=== PATIENT | male | born 1930 | race Caucasian/White ===

== ENCOUNTER 2016-09-27 20:22 | Inpatient (IN) ==
--- NOTE | 2016-09-27 20:56 | Emergency Department Note ---
Disposition Clinical Impression: Pleural effusion, Elevated troponin Anemia Qualifiers: Anemia type: unspecified type Qualified Code(s): D64.9 - Anemia, unspecified Disposition: Admitted As Inpatient Condition: Fair Referrals: Jae Núñez DO [Primary Care Provider] - Forms: ED Satisfaction Letter Time of Disposition: 23:40 Fall HPI - General Chief Complaint: ED Extremity Injury, Upper Stated Complaint: left shoulder injury Time Seen by Provider: 09/27/16 20:27 Source: EMS Nursing Notes Reviewed: Yes Vital Signs Reviewed: Yes - History of Present Illness Pt Subjective Complaint: fall Onset (ago): hour(s) Fall From: standing Fall Witnessed: no Place Fall Occurred: home Loss of Consciousness: unsure Prolonged Down Time?: unclear Context: tripped/slipped, other Location of injury - extremities: Left: shoulder Associated symptoms (after fall): Reports: denies All systems ED: reviewed and negative except as stated. Constitutional: Denies: fever, chills Eyes: Denies: eye pain, vision change ENT ED: Denies: throat pain Cardiovascular: Denies: chest pain Respiratory: Denies: cough, dyspnea, wheezes Gastrointestinal: Denies: abdominal pain, nausea, vomiting Genitourinary: Denies: dysuria Musculoskeletal: Reports: as per HPI. Denies: back pain, neck pain Integumentary: Denies: rash Neurological: Denies: headache, weakness, numbness, paresthesias Psychiatric: Denies: anxiety Endocrine: Denies: fatigue Hematological/Lymphatic: Denies: easy bleeding Allergic/Immunologic: Denies: facial swelling Fall PMH - Past Medical History Medical history: Reports: no medical history Psychiatric history: Reports: no psych history - Social History Smoking Status: Former smoker Alcohol use: Reports: none Drug use: Reports: none Physical Exam - General Limitations: no limitations General appearance: alert, in no apparent distress - Head Head exam: normocephalic - Eye Eye exam: Present: EOMI. Absent: conjunctival injection - ENT ENT exam: mucous membranes moist - Neck Neck exam: Present: full ROM - Chest Chest inspection: Present: symmetric chest wall rise, other (scars) - Respiratory Respiratory exam: Absent: respiratory distress, wheezes, stridor - Cardiovascular Cardiovascular exam: Present: regular rate - Abdominal Exam Abdominal exam: Present: soft, Non-Tender - Extremities Exam Extremities exam: Present: normal inspection, full ROM, normal capillary refill - Expanded Lower Extremity Exam Hip/Pelvis exam: Absent: tenderness Upper leg exam: Absent: tenderness Knee exam: Absent: tenderness Lower leg exam: Present: swelling. Absent: tenderness Ankle exam: Present: swelling. Absent: tenderness Foot/toe exam: Absent: tenderness Neurovascular/Tendon exam: Present: normal capillary refill. Absent: pulse deficit Gait: not tested/not observed - Back Exam Back exam: Present: full ROM. Absent: tenderness - Neurological Exam Neurological exam: Present: alert, oriented X3 - Psychiatric Psychiatric exam: Present: normal affect, normal mood - Skin Skin exam: Present: warm, dry, intact, normal color. Absent: rash, cyanosis, diaphoresis Course Course Narrative: 85yo M arrives via squad with reported fall. Fall unwitness. Pt denies LOC. Squad reports neighbor reported pt mental status at baseline. PMHx and med list unknown. Pt slow to answer questions. c/o Left shoulder. Will ordering josie david, ct head/neck. - Reevaluation(s) Reevaluation #1: Patient has a hemoglobin of 8.5, elevated troponin, and chest x-ray shows left sided pleural effusion with basilar atelectasis versus consolidation. EKG shows atrial flutter which is also indicated on his EKG from 2015. Patient currently denies chest pain, he does mention some mild shortness of breath. He is not diaphoretic, denies abdominal pain, nausea, vomiting, recent illness, bowel or bladder changes. I discussed the workup with Dr. Lindo, who agreed with decision to admit. Time: 22:25 Reevaluation #2: I did telephone and discussed patient with his son. Mentioned patient has a history of stroke with chronic right-sided weakness. He has a home health care visit are approximately every other week. He mentions his older son is power of real estate attorney but is currently unavailable out of town for the holiday. I was able to contact the patient's [id number], who provided the patient's home medication list. (Citalopram, diclofenac, lisinopril, metoprolol, simvastatin, tamsulosin,, Xarelto, lorazepam, tramadol) Patient discussed with and accepted by hospitalist Time: 23:34 Reevaluation #3: Pt declines SIN for fecal occult blood test. Time: 00:04 Vital Signs Temperature 98.1 F 09/27/16 20:23 Pulse Rate 56 09/27/16 20:23 Respiratory Rate 18 09/27/16 20:23 Blood Pressure 152/77 09/27/16 20:23 O2 Sat by Pulse Oximetry 95 09/27/16 20:23 Temperature 98.1 F 09/27/16 20:23 Pulse Rate 56 09/27/16 20:23 Respiratory Rate 18 09/27/16 20:23 Blood Pressure 152/77 09/27/16 20:23 O2 Sat by Pulse Oximetry 95 09/27/16 20:23 Oxygen Delivery Oxygen Delivery Room [facility] - [facility] Narrative Medical decision making narrative: Patient presented with mechanical fall, but also presented with possible altered mental status. CT scan head and neck are negative, left shoulder x-ray AP pelvis negative. Chest x-ray did show left-sided pleural effusion, possible consolidation. Patient also has decreased hemoglobin, he has refused SIN for fecal occult blood test. He has elevated troponin, but denies CP, SOB, and he also has elevated creatine. vitals are stable. Exam showed some mild pitting edema bilaterally, and some tenderness with palpation over left shoulder. Head and face atraumatic. I have discussed patient with Dr. Lindo who also had a face time with patient and agreed for workup and decision to admit the patient was accepted by hospitalist. All Lab Results (24 Hours) 09/27/16 09/27/16 09/27/16 Range/Units 21:44 21:44 21:44 WBC 8.6 (4.3-11.1) K/mcL RBC 2.96 L (4.19-5.50) M/mcL Hgb 8.5 L (12.9-16.9) g/dL Hct 28.4 L (37.5-50.1) % MCV 95.9 (83.0-100.0) fL MCH 28.7 (28.0-33.3) pg MCHC 29.9 L (31.6-35.5) g/dL RDW 14.3 (11.5-14.5) % Plt Count 330 (140-400) K/mcL MPV 9.0 L (9.4-12.4) fL Immature Gran % 0.3 (0-4) % Seg Neutrophils % 69.9 % Lymphocytes % 18.1 % Monocytes % 9.3 % Eosinophils % 1.9 % Basophils % 0.5 % Neutrophils # 6.0 (1.6-8.9) K/mcL Lymphocytes # 1.6 (0.6-4.6) K/mcL Monocytes # 0.8 (0.0-1.3) K/mcL Eosinophils # 0.2 (0.0-0.6) K/mcL Basophils # 0.0 (0.0-0.2) K/mcL Immature Plt Fraction 1.2 (1.1-6.1) % PT 21.0 H (9.4-12.1) Seconds INR 1.9 APTT 32.1 (26.0-36.0) Seconds Sodium 141 (136-145) mEq/L Potassium 4.7 H (3.5-4.5) mEq/L Chloride 110 H (98-109) mEq/L Carbon Dioxide 24 (19-29) mEq/L BUN 23 (8-26) mg/dL Creatinine 1.57 H (0.72-1.25) mg/dL Est GFR ( Amer) 51 L (> 60) Est GFR (Non-Af Amer) 42 L (> 60) BUN/Creatinine Ratio 15 (6-26) Glucose 94 (70-99) mg/dL Calculated Osmolality 295 (280-300) Calcium 8.6 (8.6-10.8) mg/dL Creatine Kinase 90 (30-200) Units/L Troponin I (0-0.03) ng/mL Ethyl Alcohol < 10 (0-10) mg/dL 09/27/16 Range/Units 21:44 WBC (4.3-11.1) K/mcL RBC (4.19-5.50) M/mcL Hgb (12.9-16.9) g/dL Hct (37.5-50.1) % MCV (83.0-100.0) fL MCH (28.0-33.3) pg MCHC (31.6-35.5) g/dL RDW (11.5-14.5) % Plt Count (140-400) K/mcL MPV (9.4-12.4) fL Immature Gran % (0-4) % Seg Neutrophils % % Lymphocytes % % Monocytes % % Eosinophils % % Basophils % % Neutrophils # (1.6-8.9) K/mcL Lymphocytes # (0.6-4.6) K/mcL Monocytes # (0.0-1.3) K/mcL Eosinophils # (0.0-0.6) K/mcL Basophils # (0.0-0.2) K/mcL Immature Plt Fraction (1.1-6.1) % PT (9.4-12.1) Seconds INR APTT (26.0-36.0) Seconds Sodium (136-145) mEq/L Potassium (3.5-4.5) mEq/L Chloride (98-109) mEq/L Carbon Dioxide (19-29) mEq/L BUN (8-26) mg/dL Creatinine (0.72-1.25) mg/dL Est GFR ( Amer) (> 60) Est GFR (Non-Af Amer) (> 60) BUN/Creatinine Ratio (6-26) Glucose (70-99) mg/dL Calculated Osmolality (280-300) Calcium (8.6-10.8) mg/dL Creatine Kinase (30-200) Units/L Troponin I 0.04 H* (0-0.03) ng/mL Ethyl Alcohol (0-10) mg/dL Shoulder X-Ray 09/27/16 20:46 IMPRESSION: No acute osseous abnormality. D/ / Sylvester Angel MD / Sylvester Angel MD Interpreting Provider: Sylvester Angel MD Chest X-Ray 09/27/16 20:51 IMPRESSION: Mild cardiomegaly and pulmonary vascular congestion. Small left pleural effusion, with basilar atelectasis and/or consolidation. D/ / 09/27/2016 21:45:19 Sylvester Angel MD / Natalie Mireles Interpreting Provider: Sylvester Angel MD Pelvis X-Ray 09/27/16 20:51 IMPRESSION: No acute osseous abnormality. 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 D/ / Sylvester Angel MD / Sylvester Angel MD Interpreting Provider: Sylvester Angel MD Cervical Spine CT 09/27/16 20:53 IMPRESSION: No acute abnormality of the cervical spine. Multilevel degenerative changes as above. D/ / 09/27/2016 21:38:01 Sylvester Angel MD / Natalie Mireles Interpreting Provider: Sylvester Angel MD Head CT 09/27/16 20:53 IMPRESSION: No acute intracranial abnormality. Patchy hypodensities in the periventricular and subcortical white matter, which are nonspecific, but may represent chronic small vessel ischemic change. D/ / 09/27/2016 21:39:25 Sylvester Angel MD / Natalie Mireles Interpreting Provider: Sylvester Angel MD - Lab Data Lab results reviewed: Yes I reviewed the patient's lab results. Result diagrams: 09/27/16 21:44 09/27/16 21:44 Lab Results 09/27/16 09/27/16 09/27/16 Range/Units 21:44 21:44 21:44 WBC 8.6 (4.3-11.1) K/mcL RBC 2.96 L (4.19-5.50) M/mcL Hgb 8.5 L (12.9-16.9) g/dL Hct 28.4 L (37.5-50.1) % MCV 95.9 (83.0-100.0) fL MCH 28.7 (28.0-33.3) pg MCHC 29.9 L (31.6-35.5) g/dL RDW 14.3 (11.5-14.5) % Plt Count 330 (140-400) K/mcL MPV 9.0 L (9.4-12.4) fL Immature Gran % 0.3 (0-4) % Seg Neutrophils % 69.9 % Lymphocytes % 18.1 % Monocytes % 9.3 % Eosinophils % 1.9 % Basophils % 0.5 % Neutrophils # 6.0 (1.6-8.9) K/mcL Lymphocytes # 1.6 (0.6-4.6) K/mcL Monocytes # 0.8 (0.0-1.3) K/mcL Eosinophils # 0.2 (0.0-0.6) K/mcL Basophils # 0.0 (0.0-0.2) K/mcL Immature Plt Fraction 1.2 (1.1-6.1) % PT 21.0 H (9.4-12.1) Seconds INR 1.9 APTT 32.1 (26.0-36.0) Seconds Sodium 141 (136-145) mEq/L Potassium 4.7 H (3.5-4.5) mEq/L Chloride 110 H (98-109) mEq/L Carbon Dioxide 24 (19-29) mEq/L BUN 23 (8-26) mg/dL Creatinine 1.57 H (0.72-1.25) mg/dL Est GFR ( Amer) 51 L (> 60) Est GFR (Non-Af Amer) 42 L (> 60) BUN/Creatinine Ratio 15 (6-26) Glucose 94 (70-99) mg/dL Calculated Osmolality 295 (280-300) Calcium 8.6 (8.6-10.8) mg/dL Creatine Kinase 90 (30-200) Units/L Troponin I (0-0.03) ng/mL Ethyl Alcohol < 10 (0-10) mg/dL 09/27/16 Range/Units 21:44 WBC (4.3-11.1) K/mcL RBC (4.19-5.50) M/mcL Hgb (12.9-16.9) g/dL Hct (37.5-50.1) % MCV (83.0-100.0) fL MCH (28.0-33.3) pg MCHC (31.6-35.5) g/dL RDW (11.5-14.5) % Plt Count (140-400) K/mcL MPV (9.4-12.4) fL Immature Gran % (0-4) % Seg Neutrophils % % Lymphocytes % % Monocytes % % Eosinophils % % Basophils % % Neutrophils # (1.6-8.9) K/mcL Lymphocytes # (0.6-4.6) K/mcL Monocytes # (0.0-1.3) K/mcL Eosinophils # (0.0-0.6) K/mcL Basophils # (0.0-0.2) K/mcL Immature Plt Fraction (1.1-6.1) % PT (9.4-12.1) Seconds INR APTT (26.0-36.0) Seconds Sodium (136-145) mEq/L Potassium (3.5-4.5) mEq/L Chloride (98-109) mEq/L Carbon Dioxide (19-29) mEq/L BUN (8-26) mg/dL Creatinine (0.72-1.25) mg/dL Est GFR ( Amer) (> 60) Est GFR (Non-Af Amer) (> 60) BUN/Creatinine Ratio (6-26) Glucose (70-99) mg/dL Calculated Osmolality (280-300) Calcium (8.6-10.8) mg/dL Creatine Kinase (30-200) Units/L Troponin I 0.04 H* (0-0.03) ng/mL Ethyl Alcohol (0-10) mg/dL - Radiology Data Radiology results reviewed: Yes I reviewed the patient's radiology results. - EKG Data EKG attestation: Yes I reviewed and interpreted this EKG. Attestation Statement - Attestation Attestation: Patient was seen in coordination with physician quality assistant. I also personally evaluated and had [id number] time with this patient. 85-year-old male who presents to the emergency Department chief complaint of fall. Patient was apparently chasing some [place]. When he tripped and fell. Patient is a poor historian with a history of dementia. There is some question as to whether or not he also has acute mental status change, but reports from neighbors that he is at his baseline. Patient has several areas of injury which are documented in the PA note. On examination vital signs are stable. ENT is unremarkable. Heart and lungs are normal. Abdomen is soft and nontender extremities are unremarkable. Neurologically patient is a poor historian but he is easily arousable and alert. He follows all commands. He does have some level of confusion. ED course. We will get a CT scan and workup for mental status change essentially. We will also x-ray all the areas of potential injury. If patient does not have any acute findings likely that he will be discharged to home. If anything positive shows up will treat accordingly. I agree with the physician quality assistant assessment and plan.
[2016-09-27 21:52] LABS: Basophils % 0.5 %; Eosinophils # 0.2 K/mcL (0.0-0.6); Eosinophils % 1.9 %; Hematocrit 28.4 % (37.5-50.1); Hemoglobin 8.5 g/dL (12.9-16.9); Immature Granulocytes % 0.3 % (0-4); Immature Platelets 1.2 % (1.1-6.1); Lymphocytes # 1.6 K/mcL (0.6-4.6); Lymphocytes % 18.1 %; Mean Corpuscular HGB Conc 29.9 g/dL (31.6-35.5); Mean Corpuscular Hemoglobin 28.7 pg (28.0-33.3); Mean Corpuscular Volume 95.9 fL (83.0-100.0); Monocytes # 0.8 K/mcL (0.0-1.3); Monocytes % 9.3 %; Platelet Count 330 K/mcL (140-400); Red Blood Count 2.96 M/mcL (4.19-5.50); Red Cell Distribution Width 14.3 % (11.5-14.5); Segmented Neutrophils % 69.9 %
[2016-09-27 21:58] LABS: INR 1.9
[2016-09-27 22:00] LABS: Activated Partial Thrombo Time 32.1 Seconds (26.0-36.0)
[2016-09-27 22:06] LABS: BUN/Creatinine Ratio 15 (6-26); Blood Urea Nitrogen 23 mg/dL (8-26); Calcium 8.6 mg/dL (8.6-10.8); Carbon Dioxide 24 mEq/L (19-29); Chloride 110 mEq/L (98-109); Creatine Kinase 90 Units/L (30-200); Glucose 94 mg/dL (70-99); Osmolality,Calculated 295 (280-300); Potassium 4.7 mEq/L (3.5-4.5); Sodium 141 mEq/L (136-145); eGFR For African Americans 51 (> 60); eGFR For Non-African Americans 42 (> 60)
[2016-09-27 22:07] LABS: Ethanol < 10 mg/dL (0-10)
[2016-09-27] MEDS ORDERED: Naloxone 0.4 MG/ML INJ IVP PRN (23:57)
[2016-09-27] MEDS ORDERED: Ondansetron 4 MG/2 ML VIAL IVP PRN (23:57)
--- NOTE | 2016-09-28 01:18 | Internal Med History&Physical ---
Date of Encounter: 09/28/16 Time of Encounter: 01:00 Assessment and Plan (1) CHF (congestive heart failure) Current visit: Yes Status: Acute Patient does not seem to have any symptoms of CHF. On exam, however, patient has bilateral pitting pedal edema and bilateral basal crepitations. Chest x-ray reveals pulmonary vest for condition cardia megaly with left-sided pleural effusion. His troponin elevation may also be related to his CHF or the patient could be having an acute coronary syndrome that is causing the CHF. Will obtain B-type natriuretic peptide level. Patient will be admitted to inpatient status. Expect the patient to be in the hospital at least 2 midnights. Expected discharge disposition is to home. High risk due to possible acute coronary event and is at risk of lethal arrhythmias. Intravenous Lasix 40 mg twice a day. Strict input and output monitoring, daily weights. We will obtain an echocardiogram in the morning. Cycle cardiac enzymes. His ST changes on the chest wall leads could be related to the right bundle branch block. Will repeat an EKG in the morning. Hold off on full dose antibiotic medication for now. Continue aspirin, statin and beta jaswinder. Patient may need cardiology consult depending on results of his testing and his progress. However, given his age, he is likely not a good candidate for coronary intervention. Qualifiers: Congestive heart failure type: unspecified congestive heart failure type Congestive heart failure chronicity: acute Qualified Code(s): I50.9 - Heart failure, unspecified (2) Fall Current visit: Yes Status: Acute Patient sustained a mechanical fall today. He complains of pain in his left shoulder. X-rays do not reveal any bony abnormalities. We will order Lidoderm patch. Physical therapy and occupational therapy will be consulted to evaluate the patient. Qualifiers: Encounter type: initial encounter Qualified Code(s): W19.XXXA - Unspecified fall, initial encounter (3) CVA (cerebral vascular accident) Current visit: Yes Status: Chronic History of stroke in the past with residual deficits. Continue aspirin, statin Qualifiers: CVA mechanism: unspecified Qualified Code(s): I63.9 - Cerebral infarction, unspecified (4) CAD (coronary artery disease) Current visit: Yes Status: Chronic As mentioned above, likely non-STEMI. Continue aspirin, statin. Follow-up echocardiogram and cardiac enzymes. Risks versus benefits of beta blockers need to be considered in this 85-year- old patient. Although beta blockers can reduce mortality and morbidity from cardiac disease, there is a risk of functional decline and worsening quality of life. We will hold off on beta blockers for now. Qualifiers: Coronary Disease-Associated Artery/Lesion type: [place] artery [place] vs. transplanted heart: [place] heart Associated angina: without angina Qualified Code(s): I25.10 - Atherosclerotic heart disease of [place] coronary artery without angina pectoris (5) Anemia Current visit: Yes Status: Chronic Patient's hemoglobin was 13 about 2 years ago. Patient refused rectal exam in the emergency department. Will obtain fecal occult blood test. Iron panel, B12 and folic acid levels. If the patient turns out to have acute coronary syndrome, will transfuse to keep his hemoglobin greater than 9. Qualifiers: Anemia type: unspecified type Qualified Code(s): D64.9 - Anemia, unspecified (6) CKD (chronic kidney disease), stage III Current visit: Yes Status: Chronic Renal function is mildly worsened compared to baseline. Patient is currently volume overloaded. Patient will be placed on Lasix and his response monitored. Avoid hypotension and nephrotoxic agents. Internal Medicine - H&P: HPI Chief complaint: Fall Admitted From: Emergency Dept Plans for Post Hospital Care: Home History of present illness: Mr. Cruz is a 85 year old male who was brought to the emergency department by EMS. EMS was called by the neighbor after the patient sustained a fall. The patient was apparently chasing geese off his pond when he sustained a fall. The patient's neighbor called EMS. Upon arrival of EMS, the patient was sitting in a chair and complaining of pain in his left shoulder. According to the neighbor, the patient's mental status was at its baseline. In the emergency department, the patient had workup of his fall and was not found to have any acute fractures or abnormalities. The patient is a poor historian due to his baseline dementia. However, he is able to answer questions and states that he has pain in his left shoulder that is intermittent and is 3/10. Pain worsens with movement and relieved with rest. No radiation of the pain. He denies any chest pain, shortness of breath , wheezing, palpitations or feeling lightheaded. Past Med Surg Social Fam HX - Past Medical History Source: old records reviewed Medical history: CVA, dementia, hyperlipidemia, hypertension Psychiatric history: no psych history - Past Surgical History Surgical History: non-contributory, coronary bypass (CABG) - Social History Smoking Status: Former smoker Smokeless Tobacco Status: No Alcohol use: none Drug use: none Current living situation: Home - Independent - Additional Family History Additional family history: Reviewed; not pertinent Internal Medicine - H&P: Meds Allergies No Known Allergies Allergy (Verified 09/28/16 00:07) All Systems PM: A 10-system review of systems was performed and is negative for pertinent findings except as documented above in the HPI. Review of systems: 10 systems have been reviewed and are negative except as mentioned in the history of present illness - Constitutional Vitals: Temp Pulse Resp BP Pulse Ox 98.1 F 53 16 131/80 94 09/27/16 20:23 09/27/16 23:14 09/28/16 00:38 09/28/16 00:38 09/27/16 23:14 Exam: Gen.: Sitting in bed. No acute distress. Eyes: Pupils equal, round and reactive to light. Extraocular muscles intact. ENT: Moist mucous membranes. No oropharyngeal erythema or discharge. Chest: Bilateral basal crepitations present. CVS: First and second heart sounds present. No murmurs, rubs or gallops. Midline scar on the chest. Bilateral lower extremity 2+ pitting pedal edema up to the knees. Abdomen: Soft, nontender, nondistended. Bowel sounds present. No hepatosplenomegaly. Skin: No decubitus ulcers appreciated. OIL DEVELOPER: Weakness on the right upper and lower extremities. Psychiatric: Alert, awake and oriented to time, place and person. Lymphatic system: No lymphadenopathy appreciated Internal Med - H&P Results - Labs CBC & Chem 7: 09/27/16 21:44 09/27/16 21:44 - EKG Data -: EKG Interpreted by Myself (Atrial flutter with variable conduction) EKG shows normal: QRS complexes (Right bundle branch block with RSR pattern in chest wall leads), ST-T waves (ST depressions V4 and V5) Rate: normal - EKG Data Prior EKG available for review: yes When compared to previous EKG: there are significant changes Interpretation IM: suggestive of ischemia - Diagnostic Studies Chest x-ray Status: image reviewed by me (Pulmonary vascular congestion and cardiomegaly; left small pleural effusion; prior cardiac surgery)
[2016-09-28] MEDS: Furosemide 40 MG/4 ML VIAL IVP SCH ×3 (01:58→17:40)
[2016-09-28 02:03] LABS: Bilirubin,Urine Negative (Negative); Blood,Urine Negative (Negative); Clarity,Urine Clear (Clear); Color,Urine Yellow (Yellow); Glucose,Urine (UA) Normal (Normal); Ketones,Urine 15 mg/dL (Negative); Leukocyte Esterase,Urine Negative (Negative); Nitrite,Urine Negative (Negative); Protein,Urine Trace mg/dL (Neg-Trace); Specific Gravity,Urine 1.022 (1.010-1.025); Urobilinogen,Urine Normal (Normal)
[2016-09-28 02:05] LABS: Bacteria,Urine None Seen per hpf (None-Few); Hyaline Casts,Urine None Seen per lpf (None-Few); RBC,Urine 0-3 per hpf (0-3); Squamous Epithelial Cell,Urine Many per lpf (None-Few); WBC,Urine 0-3 per hpf (0-3)
[2016-09-28 02:49] LABS: Hematocrit 30.6 % (37.5-50.1); Hemoglobin 9.2 g/dL (12.9-16.9); Mean Corpuscular HGB Conc 30.1 g/dL (31.6-35.5); Mean Corpuscular Hemoglobin 28.6 pg (28.0-33.3); Platelet Count 318 K/mcL (140-400); Red Blood Count 3.22 M/mcL (4.19-5.50); Red Cell Distribution Width 14.2 % (11.5-14.5)
[2016-09-28 03:08] LABS: Albumin 3.3 g/dL (3.5-5.0); Albumin/Globulin Ratio 0.9 (1.1-2.2); Bilirubin,Total 0.5 mg/dL (0.2-1.2); Calcium 8.8 mg/dL (8.6-10.8); Globulin 3.5 g/dL (2.4-3.5); Potassium 4.7 mEq/L (3.5-4.5); Total Protein 6.8 g/dL (6.0-8.3)
[2016-09-28 03:43] LABS: Folate 11.2 ng/mL (7.0-31.4); Vitamin B12 < 109 pg/mL (213-816)
[2016-09-28] MEDS: *HR* Heparin 5,000 UNIT/ML VIAL SQ SCH ×3 (06:40→20:27)
[2016-09-28] MEDS: Aspirin Enteric Coated 81 MG Tablet PO SCH (09:16)
--- NOTE | 2016-09-28 15:56 | Internal Med Progress Note ---
Date of Encounter: 09/28/16 Time of Encounter: 09:55 - Assessment and plan (1) CHF (congestive heart failure) Current Visit: Yes Status: Acute Assessment and plan: BNP is 259. Chest x-ray showed mild cardiomegaly pulmonary vascular congestion with a small left pleural effusion. Patient reports some peripheral edema that he states is unchanged for him. He does have mild pitting edema to bilateral ankles and feet. Echocardiogram was done today showed LVEF of 60% with normal systolic function. There is mild concentric hypertrophy of left ventricle and indeterminate diastolic dysfunction. Mild to moderate valvular dysfunction and probable mild to moderate pulmonary hypertension. Continue I's and O's Cardiac monitoring IV Lasix 40 mg twice a day Cardiology will see in the morning. Oxygen as needed to maintain saturation greater than 92%. Monitor labs Patient is close to the nurses station and is at increased risk for fall. Qualifiers: Congestive heart failure type: unspecified congestive heart failure type Congestive heart failure chronicity: acute Qualified Code(s): I50.9 - Heart failure, unspecified (2) Fall Current Visit: Yes Status: Acute Assessment and plan: Patient had mechanical fall at home last night. He was chasing geese away from his pond. He says is not sure if he tripped or fell in a hole. He complains of pain to his left shoulder, x-ray was negative. He denies hitting his head. CT in the emergency department showed no acute abnormality with patchy hypodensities in the white matter which are nonspecific but could represent chronic small vessel ischemic change. Fall precautions Patient is close to nurses station PT and OT have been consulted Qualifiers: Encounter type: initial encounter Qualified Code(s): W19.XXXA - Unspecified fall, initial encounter (3) Anemia Current Visit: Yes Status: Chronic Assessment and plan: Patient's hemoglobin is slightly elevated at 9.2 from arrival. Hemoglobin was 13 about 2 years ago. Iron and percent saturation are low as well as MCV. Will start patient on iron supplementation. B12 is low, as well. Folate is within normal limits. I have ordered a type and screen for potential transfusion if patient's hemoglobin drops below 9 and has ACS. Qualifiers: Anemia type: unspecified type Qualified Code(s): D64.9 - Anemia, unspecified (4) CAD (coronary artery disease) Current Visit: Yes Status: Chronic Assessment and plan: Patient denies chest pain currently. With elevated troponin, most likely non- STEMI. We will continue his aspirin and statin. Echocardiogram done today and results above. Troponin was flat and adynamic, also could be related to demand from congestive heart failure. Cardiology has been consulted. I have ordered a repeat troponin, routine labs for the morning, as well as an EKG in the morning. Continue telemetry Continue aspirin and statin Cardiology consult in the morning Qualifiers: Coronary Disease-Associated Artery/Lesion type: [place] artery [place] vs. transplanted heart: [place] heart Associated angina: without angina Qualified Code(s): I25.10 - Atherosclerotic heart disease of [place] coronary artery without angina pectoris (5) CKD (chronic kidney disease), stage III Current Visit: Yes Status: Chronic Assessment and plan: BUN is slightly less elevated than on admission. We will continue to monitor labs and avoid nephrotoxins. Patient is receiving Lasix for fluid overload, we will need to monitor renal function closely. Labs in the a.m. (6) CVA (cerebral vascular accident) Current Visit: Yes Status: Chronic Assessment and plan: Patient with stroke in the past. Patient does have some dysarthria and some right-sided weakness. Patient does live alone and cares for himself. I have consult in for PT and OT for evaluation for continued skilled needs. Qualifiers: CVA mechanism: unspecified Qualified Code(s): I63.9 - Cerebral infarction, unspecified - Time Spent With Patient less than 15 minutes - Subjective Interval history: Patient was seen and examined at 9:55 AM. Son, who is not the power of traffic law attorney , was at bedside. Patient states that he has a pond in his backyard that has multiple geese. He says that he was going down to the pond to scare them away when he fell. He said he is not sure if he tripped over something or fell in a hole. He denies chest pain, shortness of breath, dizziness at time of incident or prior to. His son reports that he has had another episode where he fell and had pain and an injured left shoulder from attempting to shoot the geese. Son and I discussed physical therapy and occupational therapy consults and possible rehabilitation placement. He states that sometimes he feels as if his dad is not safe to be alone. He also suggests speaking to his brother, too recommendations. He is hard of hearing, however he is very alert and oriented and interactive. Very pleasant elderly man. He does receive home health care 2 hours daily Thursday through Thursday. - Constitutional Vitals: Temp Pulse Resp BP Pulse Ox 98.0 F 68 18 142/82 98 09/28/16 15:27 09/28/16 15:27 09/28/16 15:27 09/28/16 15:27 09/28/16 15:27 General appearance: Present: cooperative, A&O X 3, pleasant, no acute distress, answers questions appropriately - Head Head exam: Present: normal inspection - Eye Eye exam: Present: normal appearance, conjuntiva pink - ENT ENT exam: Present: mucous membranes moist, normal exam - Neck Neck exam general surgery: Present: normal inspection. Absent: lymphadenopathy , tenderness - Respiratory Respiratory exam: Present: decreased breath sounds, rales. Absent: chest wall tenderness, respiratory distress, rhonchi, stridor, wheezes - GI/Abdominal GI/Abdominal exam: Present: normal bowel sounds, soft. Absent: distended, hepatomegaly, tenderness - Extremities Exam Extremities exam: Present: normal inspection, warm, radial pulses palpable and symetrical. Absent: pedal edema, tenderness - Neurological Exam Neurological exam: Present: alert, oriented X3. Absent: facial droop, speech deficit Internal Medicine: Result - Labs CBC & Chem 7: 09/28/16 02:35 09/28/16 02:35 Labs: Short CBC 09/28/16 Range/Units 02:35 WBC 7.9 (4.3-11.1) K/mcL Hgb 9.2 L (12.9-16.9) g/dL Hct 30.6 L (37.5-50.1) % Plt Count 318 (140-400) K/mcL BMP 09/28/16 02:35 Sodium 140 Potassium 4.7 H Chloride 108 Carbon Dioxide 25 BUN 21 Creatinine 1.48 H Glucose 99 Calcium 8.8 Cardiac Enzymes 09/28/16 09/28/16 Range/Units 02:35 08:18 Troponin I 0.03 0.04 H* (0-0.03) ng/mL Liver Function 09/28/16 Range/Units 02:35 Total Bilirubin 0.5 (0.2-1.2) mg/dL AST 17 (5-34) Units/L ALT 15 (0-55) Units/L Alkaline Phosphatase 66 (38-126) Units/L Albumin 3.3 L (3.5-5.0) g/dL Urine 09/28/16 Range/Units 01:50 Urine Color Yellow (Yellow) Urine Clarity Clear (Clear) Urine pH 7.0 (5.0-8.0) pH Units Ur Specific [place] 1.022 (1.010-1.025) Urine Protein Trace (Neg-Trace) mg/dL Urine Glucose (UA) Normal (Normal) mg/dL - ABG Interpretation ABG results: PT/INR, D-dimer PT 21.0 Seconds (9.4-12.1) H 09/27/16 21:44 Consult Discharge Plan - Plan Referrals: ColopyJae DO [Primary Care Provider] -
[2016-09-28] MEDS: Acetaminophen 325 MG TABLET PO PRN (20:32)
[2016-09-29 04:26] LABS: Basophils % 0.5 %; Eosinophils # 0.2 K/mcL (0.0-0.6); Eosinophils % 1.7 %; Hematocrit 32.1 % (37.5-50.1); Hemoglobin 9.8 g/dL (12.9-16.9); Immature Granulocytes % 0.3 % (0-4); Lymphocytes # 1.6 K/mcL (0.6-4.6); Lymphocytes % 18.3 %; Mean Corpuscular HGB Conc 30.5 g/dL (31.6-35.5); Mean Corpuscular Hemoglobin 28.7 pg (28.0-33.3); Mean Corpuscular Volume 93.9 fL (83.0-100.0); Mean Platelet Volume 9.4 fL (9.4-12.4); Monocytes # 1.1 K/mcL (0.0-1.3); Monocytes % 12.3 %; Neutrophils # 5.8 K/mcL (1.6-8.9); Platelet Count 368 K/mcL (140-400); Red Blood Count 3.42 M/mcL (4.19-5.50); Red Cell Distribution Width 14.2 % (11.5-14.5); Segmented Neutrophils % 66.9 %
[2016-09-29 04:27] LABS: Calcium 9.2 mg/dL (8.6-10.8)
[2016-09-29] MEDS: *HR* Heparin 5,000 UNIT/ML VIAL SQ SCH (05:52)
[2016-09-29] MEDS: Acetaminophen 325 MG TABLET PO PRN (05:52)
[2016-09-29] MEDS: Furosemide 40 MG/4 ML VIAL IVP SCH (08:35)
[2016-09-29] MEDS: Aspirin Enteric Coated 81 MG Tablet PO SCH (08:35)
[2016-09-29 08:42] LABS: Bilirubin,Urine Small (Negative); Blood,Urine Large (Negative); Clarity,Urine Cloudy (Clear); Color,Urine Red (Yellow); Glucose,Urine (UA) Normal (Normal); Ketones,Urine 15 mg/dL (Negative); Leukocyte Esterase,Urine Moderate (Negative); Nitrite,Urine Negative (Negative); Protein,Urine >=300 mg/dL (Neg-Trace); Specific Gravity,Urine 1.026 (1.010-1.025); Urobilinogen,Urine Normal (Normal)
[2016-09-29 08:44] LABS: Bacteria,Urine None Seen per hpf (None-Few); Hyaline Casts,Urine None Seen per lpf (None-Few); RBC,Urine TNTC per hpf (0-3); Squamous Epithelial Cell,Urine Many per lpf (None-Few); WBC,Urine 15-30 per hpf (0-3)
[2016-09-29] MEDS ORDERED: Cyanocobalamin (B-12) 1,000 MCG TABLET PO SCH (09:00)
--- NOTE | 2016-09-29 12:13 | Cardiology Consult Note ---
<OseasRayna Lurdes - Last Filed: 09/29/16 13:32> Date of Encounter: 09/29/16 Time of Encounter: 09:00 Assessment and Plan (1) Fall Current Visit: Yes Status: Acute Per cardiology: -Patient with mechanical fall at home, while chasing geese out of his pond. -Denies any other recent falls. -Injury work up completed in ER. -Management per primary service. Qualifiers: Encounter type: initial encounter Qualified Code(s): W19.XXXA - Unspecified fall, initial encounter (2) Elevated troponin Current Visit: Yes Status: Acute Per cardiology: -Elevated troponin 0.04, 0.04, 0.03, 0.04. -Troponins flat and adynamic in the setting of CHF, fall, and STEPHAN. -Denies chest pain. -Denies increased shortness of breath or increased fatigue. -ECG with no ischemic changes. -ON asa. statin. Has not been on beta jaswinder due to bradycardia. -Echo 09/28/16 with LVEF 60%, mild concentric left ventricular hypertrophy, indeterminate left ventricular diastolic function, moderate aortic stenosis, mild mitral regurgitation, mild tricuspid regurgitation, mild pulmonic regurgitation, mild to moderate pulmonary hypertension, all wall segments with normal motion. -Do not suspect NSTEMI, suspect demand ischemia related to CHF, fall, and STEPHAN. NO cardiac rehab warranted at this time. -Will continue to monitor. (3) Diastolic congestive heart failure, NYHA class 1 Current Visit: Yes Status: Acute Per cardiology: -Echo 09/28/16 as above, LVEF 60%, indeterminate diastolic function. -Chest x-ray with small left pleural effusion. -Reported pedal edema yesterday. -Was given lasix 40 IV BID per primary service, now with worsening STEPHAN. -Currently net negative 5800ml this admission. -Euvolemic on exam. -Due to worsening STEPHAN, will add 0.9NS at 50ml/hour for 1 liter. -Lasix stopped. -Recommend IV fluids overnight and repeat BMP in am. -Will continue to monitor. (4) Atrial fibrillation Current Visit: Yes Status: Chronic Per cardiology: -KNown a.fib. Previously seen in 2014 by [facility] for atrial fibrillation with slow ventricular response. -Currently atrial fibrillation. -Patient with previous CVA 2014 at the time of diagnosis of atrial fibrillation. Had been on xarelto as outpatient. -Now with STEPHAN, creatinine clearance calculated using ideal body weight, creatinine clearance noted ot be 26. Will start xarelto 15mg daily for renal adjustment. -Patient now with anemia. Hemoglobin 9.8. Patient babak bleeding or blood loss. Baseline hemoglobin 13 from 2015. Stool for occult blood negative. -Lidfa0yaor score 7 (age, HTN, CHF, vascular disease, previous CVA). Patient extremely high risk for recurrent CVA. Due to worsening creatinine and anemia will start xarelto 15mg daily. Patient and family aware of increased stroke risk while off of xarelto. Patient and family aware of increased risk of bleeding while on xarelto. Patient and family state understanding and agree with plan. Discussed and reviewed with Kleber Peralta. -Has bled score 3 (age,HTN, CVA history). -Has not been on AV alex blocking agents due to history of bradycardia. -Of note, had been on heparin 5000 units subcutaneous. -Will start xarelto 15mg daily for renal adjustment. -Will monitor CBC and watch closely for bleeding due to anemia and needing anticoagulation. -Will continue to monitor. Qualifiers: Atrial fibrillation type: chronic Qualified Code(s): I48.2 - Chronic atrial fibrillation (5) Anemia Current Visit: Yes Status: Acute Per cardiology: -Hemoglobin today 9.8. -Previous hemoglobin in 2014 with hemoglobin 13s. -No CBC since 2014, -Denies active bleeding or blood loss. -Stool OB negative. -Due to high risk of CVA will start back xarelto. -Management per primary service. -Can consider hematology consultation. Qualifiers: Anemia type: unspecified type Qualified Code(s): D64.9 - Anemia, unspecified (6) Acute kidney injury Current Visit: Yes Status: Acute Per cardiology: -Creatinine now 2.03. -Creatinine 1.57 on addmission. -Was on lasix, now stopped. -Net negative 5800ml. -Will give slowly IV fluids for a total of 1 Liter. -Can consider nephrology consult. -Management per primary service (7) CAD (coronary artery disease) Current Visit: Yes Status: Chronic Per cardiology: -KNown history of CAD with CABG x4 in 2010. -Denies chest pain. -ECG with no ischemic changes. -Denies increased shortness of breath or increased fatigue. -Echo as above. -On asa and stain. Not on beta jaswinder due to history of bradycardia. -Will continue to monitor. Qualifiers: Coronary Disease-Associated Artery/Lesion type: [place] artery [place] vs. transplanted heart: [place] heart Associated angina: without angina Qualified Code(s): I25.10 - Atherosclerotic heart disease of [place] coronary artery without angina pectoris (8) Aortic stenosis, moderate Current Visit: Yes Status: Acute Per cardiology: -Moderate aortic stenosis per echo. -Aortic stenosis noted to be mild in 2015. -denies shortness of breath. -Will continue to monitor. Discussion w patient/family: The assessment and plan as outlined above was discussed with the patient and/or family members who expressed understanding and agreement. All questions were answered. Thank you for involving us in the care of your patient. Please call with any questions. History of Present Illness Consult date: 09/28/16 Requesting physician: Nkechi Sanchez Consult reason: CHF, elevated troponin Chief complaint: fall with injury History of present illness: Mr. Cruz is a 85 year old male with a relevant past medical history of CAD s/ p CABG 2010 x4 vessels,CVA, atrial fibrillation, bradycardia. Patient presented to [facility] after at fall at home. Patient states he was chasing geese out of his pond when he tripped and fell. Patient denies syncope, dizziness, or lightheadedness. Work up for injuries was completed by ER. Cardiology was consutled for CHF and elevated troponin. Patient denies chest pain. Patient states fatigue and shortness of breath are at baseline. Patient reported yesterday that he had some edema in lower extremities, however today he states it is resolved. Patient states he is feeling much better today. Patient denies bleeding or blood loss. Patient states he has been on xarelto and has been since 2014. Patient denies any previous falls, besides current episode. Past Med Surg Social Fam HX - Past Medical History Attestation: Yes The following information was validated with the patient. Source: patient, old records reviewed, obtained from family Medical history: CVA, dementia, hyperlipidemia, hypertension Psychiatric history: no psych history - Past Surgical History Surgical History: non-contributory, coronary bypass (CABG) - Social History Smoking Status: Former smoker Smokeless Tobacco Status: No Alcohol use: none Drug use: none Medications and Allergies Aspirin [Lo-Dose Aspirin EC] 81 mg PO DAILY 09/28/16 [History] Citalopram [CeleXA] 10 mg PO DAILY 09/28/16 [History] Diclofenac Sodium (24 HR) [Voltaren XR] 100 mg PO DAILY 09/28/16 [History] LORazepam [Ativan] 0.5 mg PO HS 09/28/16 [History] Lisinopril [Zestril] 10 mg PO DAILY 09/28/16 [History] Metoprolol XL (24 HR) Succ [Toprol XL] 25 mg PO DAILY 09/28/16 [History] Rivaroxaban [Xarelto] 20 mg PO DAILY 09/28/16 [History] Simvastatin [Zocor] 10 mg PO DAILY 09/28/16 [History] Tamsulosin HCl [Flomax] 0.4 mg PO DAILY 09/28/16 [History] Tramadol HCl [Ultram] 50 mg PO DAILY 09/28/16 [History] Allergies No Known Allergies Allergy (Verified 09/28/16 00:07) All Systems Review: A 10-system review of systems was performed and is negative for pertinent findings except as documented above in the HPI. - Cardiovascular Cardiovascular: as per HPI (Patient reports fall. ) Physical Examination Vital Signs, Last 4 Hours Temp Pulse Resp BP Pulse Ox 09/29/16 10:58 97.6 F 72 16 116/72 95 General: Conversant, No Apparent Distress HEENT: Atraumatic, Normocephaly, Mucus Membranes Moist Neck: No JVD, Normal carotid pulses Cardiac: Reg Rate and Rhythm, Normal S1 and S2, Other (Systolic murmur noted. ) Lungs: Normal Breath Sounds, No Wheeze, Rales, Rhonchi Neuro: Alert and responsive, No focal deficits noted Abdomen: Soft, Non-Tender Skin: No rashes noted on visualized skin Musculoskeletal: No Chest Wall Tenderness Extremities: No Clubbing, No Cyanosis, No Edema, Normal Pulses Results 09/29/16 03:30 09/29/16 03:30 Lab Results Active Medications Acetaminophen (Tylenol) 650 mg PO Q6HR PRN PRN Reason: Mild Pain (1-3) Stop: 03/29/17 23:58 Last Admin: 09/29/16 05:52 Dose: 650 mg Aspirin (Aspirin Ec) 81 mg PO DAILY [facility]INE Stop: 03/30/17 09:01 Last Admin: 09/29/16 08:35 Dose: 81 mg Atorvastatin Calcium (Lipitor) 40 mg PO HS [facility] Stop: 03/30/17 01:34 Last Admin: 09/28/16 20:27 Dose: Not Given Cyanocobalamin (Vitamin B12) 1,000 mcg PO DAILY [facility] Stop: 03/31/17 09:01 Last Admin: 09/29/16 08:35 Dose: 1,000 mcg Ferrous Sulfate (Ferrous Sulfate) 325 mg PO BIDWM [facility]INE Stop: 03/30/17 17:01 Last Admin: 09/29/16 08:35 Dose: 325 mg Sodium Chloride (0.9 % Sodium Chloride) 1,000 mls @ 50 mls/hr IVC .Q20H [facility] Stop: 09/30/16 12:16 Lidocaine HCl (Lidoderm 5% Patch) 1 each TP DAILY [facility] Stop: 03/30/17 01:18 Last Admin: 09/29/16 08:31 Dose: 1 each Naloxone HCl (Narcan) 0.4 mg IVP Q2MIN PRN PRN Reason: Opioid Reversal Stop: 03/29/17 23:58 Ondansetron HCl (Zofran) 4 mg IVP Q8HR PRN PRN Reason: Nausea And Vomiting Stop: 03/29/17 23:58 Rivaroxaban (Xarelto) 15 mg PO 1700 [facility] Stop: 03/31/17 17:01 Laboratory Tests 11/06/14 01/29/16 07/28/16 10:29 08:18 10:05 Hgb 13.4 Potassium Creatinine 1.49 H 1.24 Troponin I Stool Occult Blood 09/27/16 09/27/16 09/27/16 21:44 21:44 21:44 Hgb 8.5 L Potassium Creatinine 1.57 H Troponin I 0.04 H* Stool Occult Blood 09/28/16 09/28/16 09/28/16 02:35 02:35 07:57 Hgb Potassium Creatinine 1.48 H Troponin I 0.03 Stool Occult Blood Negative 09/28/16 09/28/16 09/29/16 08:18 16:40 03:30 Hgb 9.8 L Potassium Creatinine Troponin I 0.04 H* 0.04 H* Stool Occult Blood 09/29/16 03:30 Hgb Potassium 4.0 Creatinine 2.03 H Troponin I Stool Occult Blood - Imaging and Cardiology Chest Xray: report reviewed Echo: report reviewed Other Results: CT head, C-spine report reviewed. X-ray hip and shoulder reviewed. - EKG Interpretation EKG results cardiology: personally reviewed (ECG reviewed with atrial flutter, HR 63.), other (Telemetry reviewed with average HR previous 12 hours noted to be 87, atrial flutter, PVCs and couplet PVCs noted.) Consult Discharge Plan - Plan Referrals: Jae Núñez DO [Primary Care Provider] - <Anaid Shahid - Last Filed: 09/29/16 14:10> Date of Encounter: 09/29/16 Assessment and Plan Discussion w patient/family: The assessment and plan as outlined above was discussed with the patient and/or family members who expressed understanding and agreement. All questions were answered. Thank you for involving us in the care of your patient. Please call with any questions. History of Present Illness History of present illness: Mr. Cruz is a 85 year old male All Systems Review: A 10-system review of systems was performed and is negative for pertinent findings except as documented above in the HPI. Physical Examination Vital Signs, Last 4 Hours Temp Pulse Resp BP Pulse Ox 09/29/16 10:58 97.6 F 72 16 116/72 95 Results 09/29/16 03:30 09/29/16 03:30 Lab Results 09/28/16 09/29/16 09/29/16 16:40 03:30 03:30 WBC 8.6 Hgb 9.8 L Hct 32.1 L Plt Count 368 Sodium 142 Potassium 4.0 Chloride 104 Carbon Dioxide 27 BUN 28 H Creatinine 2.03 H Glucose 112 H Calcium 9.2 Troponin I 0.04 H* - Attending Attestation I examined this patient and my medical decision-making was reviewed with the STATIONARY EQUIPMENT MECHANIC/PA/Advanced Practice Nurse/Resident Physician. I agree with the documented findings, disposition and treatment plan. Mr. Cruz presented with a mechanical fall at home while trying to [place]ese out of his pond. Incidental flat increase in troponins are not indicative of ACS. Patient is without chest pain or ischemic ECG findings. LV systolic function normal. Noted, however is worsening renal function after diuresis. Lasix was stopped. Recommend gentle hydration overnight to allow renal function to improve which is of particular importance since he is on xarelto ( 15mg). Noted is anemia, Hgb 9.8 previously 13 in 2015. Recommend close watch on blood count. Presently, no bleeding has been observed.
[2016-09-29] MEDS: 0.9 % Sodium Chloride 1,000 ML IVC SCH (13:08)
--- NOTE | 2016-09-29 14:35 | Internal Med Progress Note ---
Date of Encounter: 09/29/16 Time of Encounter: 14:32 - Assessment and plan (1) CHF (congestive heart failure) Current Visit: Yes Status: Acute Assessment and plan: Patient noted to have significant diuresis with around 6L net negative fluid balance and 6kg weight loss since admission, along with worsening serum creatinine; Cardiology consult appreciated; held Lasix at this time and started on gentle IV hydration for 1L; hold beta jaswinder due to bradycardia; Qualifiers: Congestive heart failure type: diastolic Congestive heart failure chronicity: acute Qualified Code(s): I50.31 - Acute diastolic (congestive) heart failure (2) Acute kidney injury Current Visit: Yes Status: Acute Assessment and plan: STEPHAN on underlying CKD, due to use of IV diuretics; hold LASIX, gentle IV hydration and monitor serum creatinine closely; (3) Atrial fibrillation Current Visit: Yes Status: Chronic Assessment and plan: rate-controlled; hold AV alex blockers due to documented slow ventricular response and bradycardia in the past; has been restarted on low dose Xarelto by Cardiology due to renal dysfunction and high stroke risk on CHADS-VASC2 score; Qualifiers: Atrial fibrillation type: chronic Qualified Code(s): I48.2 - Chronic atrial fibrillation (4) Dementia Current Visit: Yes Status: Chronic Assessment and plan: supportive care and fall precautions; PT/OT consults and possible placement; Qualifiers: Dementia type: Alzheimer's disease Alzheimer's disease onset: late-onset Dementia behavioral disturbance: without behavioral disturbance Qualified Code (s): G30.1 - Alzheimer's disease with late onset; F02.80 - Dementia in other diseases classified elsewhere without behavioral disturbance (5) Anemia Current Visit: Yes Status: Chronic Assessment and plan: noted to have low serum Vit B12 level, will start IM Cyanocobalamine 1000mcg for 7days, to be switched to PO form; Qualifiers: Anemia type: unspecified type Qualified Code(s): D64.9 - Anemia, unspecified (6) CVA (cerebral vascular accident) Current Visit: Yes Status: Chronic Qualifiers: CVA mechanism: unspecified Qualified Code(s): I63.9 - Cerebral infarction, unspecified (7) CAD (coronary artery disease) Current Visit: Yes Status: Chronic Qualifiers: Coronary Disease-Associated Artery/Lesion type: [place] artery [place] vs. transplanted heart: [place] heart Associated angina: without angina Qualified Code(s): I25.10 - Atherosclerotic heart disease of [place] coronary artery without angina pectoris (8) CKD (chronic kidney disease), stage III Current Visit: Yes Status: Chronic (9) Aortic stenosis, moderate Current Visit: Yes Status: Chronic - Subjective Interval history: Patient has dementia, unable to provide any history, which is obtained from review of previous records and talking to RN; patient denies any specific pain, dyspnea, nausea or emesis; noted to have good appetite, improved leg swelling; - Constitutional Vitals: Temp Pulse Resp BP Pulse Ox 97.6 F 72 16 116/72 95 09/29/16 10:58 09/29/16 10:58 09/29/16 10:58 09/29/16 10:58 09/29/16 10:58 General appearance: Present: A&O X 2. Absent: answers questions appropriately - Respiratory Respiratory exam: Present: CTAB. Absent: accessory muscle use, rales, rhonchi, wheezes - Cardiovascular Cardiovascular exam: Present: RRR, +S1, +S2, systolic murmur. Absent: diastolic murmur, gallop, rubs - GI/Abdominal GI/Abdominal exam: Present: normal bowel sounds, soft, no peritoneal signs. Absent: distended, tenderness - Extremities Exam Extremities exam: Present: full ROM, warm, radial pulses palpable and symetrical. Absent: calf tenderness, cyanotic, pedal edema - Skin Skin exam: Present: dry, intact Internal Medicine: Result - Labs CBC & Chem 7: 09/29/16 03:30 09/29/16 03:30 Labs: Short CBC 09/29/16 Range/Units 03:30 WBC 8.6 (4.3-11.1) K/mcL Hgb 9.8 L (12.9-16.9) g/dL Hct 32.1 L (37.5-50.1) % Plt Count 368 (140-400) K/mcL Neutrophils # 5.8 (1.6-8.9) K/mcL BMP 09/29/16 03:30 Sodium 142 Potassium 4.0 Chloride 104 Carbon Dioxide 27 BUN 28 H Creatinine 2.03 H Glucose 112 H Calcium 9.2 Cardiac Enzymes 09/28/16 Range/Units 16:40 Troponin I 0.04 H* (0-0.03) ng/mL Urine 09/29/16 Range/Units 08:29 Urine Color Red A (Yellow) Urine Clarity Cloudy A (Clear) Urine pH 6.0 (5.0-8.0) pH Units Ur Specific [place] 1.026 H (1.010-1.025) Urine Protein >=300 H (Neg-Trace) mg/dL Urine Glucose (UA) Normal (Normal) mg/dL - ABG Interpretation ABG results: PT/INR, D-dimer PT 21.0 Seconds (9.4-12.1) H 09/27/16 21:44 Consult Discharge Plan - Plan Referrals: ColopyJae DO [Primary Care Provider] -
[2016-09-29] MEDS: *HR* Rivaroxaban 15 MG TABLET PO SCH (17:32)
[2016-09-30] MEDS ORDERED: Ziprasidone injection 20 MG/ML VIAL IM ONE ×2 (04:09)
[2016-09-30] MEDS ORDERED: Water for inj. (sterile) 10 ML IV ONE (04:17)
[2016-09-30 06:10] LABS: Hematocrit 35.2 % (37.5-50.1); Hemoglobin 10.7 g/dL (12.9-16.9); Mean Corpuscular HGB Conc 30.4 g/dL (31.6-35.5); Mean Corpuscular Hemoglobin 28.8 pg (28.0-33.3); Mean Corpuscular Volume 94.6 fL (83.0-100.0); Mean Platelet Volume 9.1 fL (9.4-12.4); Platelet Count 360 K/mcL (140-400); Red Blood Count 3.72 M/mcL (4.19-5.50); Red Cell Distribution Width 14.1 % (11.5-14.5)
[2016-09-30 06:23] LABS: Calcium 9.2 mg/dL (8.6-10.8); Potassium 3.8 mEq/L (3.5-4.5)
[2016-09-30] MEDS: Cyanocobalamin (B-12) 1,000 MCG/ML VIAL IM SCH (08:34)
[2016-09-30] MEDS: Aspirin Enteric Coated 81 MG Tablet PO SCH (08:34)
--- NOTE | 2016-09-30 10:44 | Cardiology Progress Note ---
Date of Encounter: 09/30/16 Time of Encounter: 08:30 Assessment and Plan (1) Fall Current Visit: Yes Status: Acute Per cardiology: -Patient with mechanical fall at home, while chasing geese out of his pond. -Denies any other recent falls. -Injury work up completed in ER. -Management per primary service. Qualifiers: Encounter type: initial encounter Qualified Code(s): W19.XXXA - Unspecified fall, initial encounter (2) Elevated troponin Current Visit: Yes Status: Acute Per cardiology: -Elevated troponin 0.04, 0.04, 0.03, 0.04. -Troponins flat and adynamic in the setting of CHF, fall, and STEPHAN. -Denies chest pain. -Denies increased shortness of breath or increased fatigue. -ECG with no ischemic changes. -ON asa. statin. Has not been on beta jaswinder due to bradycardia. -Echo 09/28/16 with LVEF 60%, mild concentric left ventricular hypertrophy, indeterminate left ventricular diastolic function, moderate aortic stenosis, mild mitral regurgitation, mild tricuspid regurgitation, mild pulmonic regurgitation, mild to moderate pulmonary hypertension, all wall segments with normal motion. -Do not suspect NSTEMI, suspect demand ischemia related to CHF, fall, and STEPHAN. NO cardiac rehab warranted at this time. -Cardiology will sign off and will follow up in outpatient setting. (3) Diastolic congestive heart failure, NYHA class 1 Current Visit: Yes Status: Acute Per cardiology: -Echo 09/28/16 as above, LVEF 60%, indeterminate diastolic function. -Chest x-ray with small left pleural effusion. -Reported pedal edema yesterday. -Was given lasix 40 IV BID per primary service, now with worsening STEPHAN. -Currently net negative 8090 ml this admission. -Euvolemic on exam. -Due to worsening STEPHAN, will add 0.9NS at 50ml/hour for 1 liter. Now off. -Cardiology will sign off and will follow up in outpatient setting. Follow up set. (4) Atrial fibrillation Current Visit: Yes Status: Chronic Per cardiology: -KNown a.fib. Previously seen in 2014 by [place] [facility] for atrial fibrillation with slow ventricular response. -Currently atrial fibrillation, rate controlled. -Patient with previous CVA 2014 at the time of diagnosis of atrial fibrillation. Had been on xarelto as outpatient. -Now with STEPHAN, creatinine clearance calculated using ideal body weight, creatinine clearance noted ot be 26. Will start xarelto 15mg daily for renal adjustment. -Patient now with anemia. Hemoglobin 10.7. Patient babak bleeding or blood loss. Baseline hemoglobin 13 from 2014. Stool for occult blood negative. -[id number] score 7 (age, HTN, CHF, vascular disease, previous CVA). Patient extremely high risk for recurrent CVA. Due to worsening creatinine and anemia will start xarelto 15mg daily. Patient and family aware of increased stroke risk while off of xarelto. Patient and family aware of increased risk of bleeding while on xarelto. Patient and family state understanding and agree with plan. Discussed and reviewed with Kleber Peralta. -Has bled score 3 (age,HTN, CVA history). -Has not been on AV alex blocking agents due to history of bradycardia. -Of note, had been on heparin 5000 units subcutaneous. -On xarelto 15mg daily for renal adjustment. -Will continue to monitor in outpatient setting. Qualifiers: Atrial fibrillation type: chronic Qualified Code(s): I48.2 - Chronic atrial fibrillation (5) Anemia Current Visit: Yes Status: Chronic Per cardiology: -Hemoglobin today 10.7 -Previous hemoglobin in 2015 with hemoglobin 13s. -No CBC since 2015, -Denies active bleeding or blood loss. -Stool OB negative. -Due to high risk of CVA will start back xarelto. -Management per primary service. -Can consider hematology consultation. Qualifiers: Anemia type: unspecified type Qualified Code(s): D64.9 - Anemia, unspecified (6) Acute kidney injury Current Visit: Yes Status: Acute Per cardiology: -Creatinine now 1.42, had been 2.03. -Creatinine 1.57 on addmission. -Was on lasix, now stopped. -Net negative 8090ml. -Management per primary service (7) CAD (coronary artery disease) Current Visit: Yes Status: Chronic Per cardiology: -KNown history of CAD with CABG x4 in 2010. -Denies chest pain. -ECG with no ischemic changes. -Denies increased shortness of breath or increased fatigue. -Echo as above. -On asa and stain. Not on beta jaswinder due to history of bradycardia. -Will continue to monitor. Qualifiers: Coronary Disease-Associated Artery/Lesion type: [place] artery [place] vs. transplanted heart: [place] heart Associated angina: without angina Qualified Code(s): I25.10 - Atherosclerotic heart disease of [place] coronary artery without angina pectoris (8) Aortic stenosis, moderate Current Visit: Yes Status: Chronic Per cardiology: -Moderate aortic stenosis per echo. -Aortic stenosis noted to be mild in 2015. -denies shortness of breath. -Will continue to monitor. Discussion w patient/family: The assessment and plan as outlined above was discussed with the patient and/or family members who expressed understanding and agreement. All questions were answered. Thank you for involving us in the care of your patient. Please call with any questions. Discussed and reviewed with . Subjective Principal diagnosis: Injury to shoulder Interval history: Patient presented to [facility] after at fall at home. Patient states he was chasing geese out of his pond when he tripped and fell. Patient denies syncope, dizziness, or lightheadedness. Work up for injuries was completed by ER. Cardiology was consutled for CHF and elevated troponin. Patient denies chest pain. Patient states fatigue and shortness of breath are at baseline. Patient reported that he had some edema in lower extremities, however today he states it is resolved. Patient denies bleeding or blood loss. Patient states he has been on xarelto and has been since 2015. Patient denies any previous falls, besides current episode. Patient states he feels much better today. Objective Vital Signs, Last 4 Hours Temp Pulse Resp BP Pulse Ox 09/30/16 10:29 97.9 F 76 16 114/71 96 09/30/16 07:47 97.5 F L 75 16 149/88 98 General: Conversant, No Apparent Distress HEENT: Atraumatic, Normocephaly, Mucus Membranes Moist Neck: No JVD, Normal carotid pulses Cardiac: Reg Rate and Rhythm, Normal S1 and S2, No Murmur Lungs: Normal Breath Sounds, No Wheeze, Rales, Rhonchi Neuro: Alert and responsive, No focal deficits noted Abdomen: Soft, Non-Tender Skin: No rashes noted on visualized skin Musculoskeletal: No Chest Wall Tenderness Extremities: No Clubbing, No Cyanosis, No Edema, Normal Pulses Results 09/30/16 05:52 09/30/16 05:52 Lab Results Active Medications Acetaminophen (Tylenol) 650 mg PO Q6HR PRN PRN Reason: Mild Pain (1-3) Stop: 03/29/17 23:58 Last Admin: 09/29/16 05:52 Dose: 650 mg Aspirin (Aspirin Ec) 81 mg PO DAILY [facility] Stop: 03/30/17 09:01 Last Admin: 09/30/16 08:34 Dose: 81 mg Atorvastatin Calcium (Lipitor) 40 mg PO HS [facility] Stop: 03/30/17 01:34 Last Admin: 09/29/16 20:48 Dose: 40 mg Cyanocobalamin (Vitamin B12) 1,000 mcg IM DAILY [facility] Stop: 04/01/17 09:01 Last Admin: 09/30/16 08:34 Dose: 1,000 mcg Ferrous Sulfate (Ferrous Sulfate) 325 mg PO BIDWM [facility] Stop: 03/30/17 17:01 Last Admin: 09/30/16 08:34 Dose: 325 mg Sodium Chloride (0.9 % Sodium Chloride) 1,000 mls @ 50 mls/hr IVC .Q20H [facility] Stop: 09/30/16 12:16 Last Admin: 09/29/16 13:08 Dose: 50 mls/hr Lidocaine HCl (Lidoderm 5% Patch) 1 each TP DAILY [facility] Stop: 03/30/17 01:18 Last Admin: 09/30/16 08:55 Dose: 1 each Naloxone HCl (Narcan) 0.4 mg IVP Q2MIN PRN PRN Reason: Opioid Reversal Stop: 03/29/17 23:58 Ondansetron HCl (Zofran) 4 mg IVP Q8HR PRN PRN Reason: Nausea And Vomiting Stop: 03/29/17 23:58 Rivaroxaban (Xarelto) 15 mg PO 1700 [facility] Stop: 03/31/17 17:01 Last Admin: 09/29/16 17:32 Dose: 15 mg Laboratory Tests 09/27/16 09/27/16 09/29/16 21:44 21:44 03:30 Hgb 8.5 L Creatinine 1.57 H 2.03 H 09/30/16 09/30/16 05:52 05:52 Hgb 10.7 L Creatinine 1.42 H - Imaging and Cardiology Chest Xray: report reviewed Echo: report reviewed - EKG Interpretation EKG results cardiology: other (Telemetry reviewed with average HR 85, atrial flutter. PVCs and couplets noted.) Consult Discharge Plan - Plan Referrals: Jae Núñez, DO [Primary Care Provider] -
--- NOTE | 2016-09-30 12:33 | Internal Med Progress Note ---
Date of Encounter: 09/30/16 Time of Encounter: 12:32 - Assessment and plan (1) CHF (congestive heart failure) Current Visit: Yes Status: Acute Assessment and plan: Patient noted to have significant diuresis with around 6L net negative fluid balance and 6kg weight loss since admission, along with worsening serum creatinine; Cardiology consult appreciated, signed off at this time; held Lasix at this time and received gentle hydration with 1 L normal saline with appropriate improvement in creatinine; hold beta jaswinder due to bradycardia; echocardiogram shows preserved ejection fraction, indeterminate left- ventricular diastolic function, moderate aortic stenosis, mild MR, TR, NE; mild to moderate pulmonary hypertension, Qualifiers: Congestive heart failure type: diastolic Congestive heart failure chronicity: acute Qualified Code(s): I50.31 - Acute diastolic (congestive) heart failure (2) Acute kidney injury Current Visit: Yes Status: Acute Assessment and plan: STEPHAN on underlying CKD, due to use of IV diuretics; hold LASIX, and monitor serum creatinine closely; creatinine noted to be improving back to baseline. (3) Atrial fibrillation Current Visit: Yes Status: Chronic Assessment and plan: rate-controlled; hold AV alex blockers due to documented slow ventricular response and bradycardia in the past; has been restarted on low dose Xarelto by Cardiology due to renal dysfunction and high stroke risk on CHADS-VASC2 score; Qualifiers: Atrial fibrillation type: chronic Qualified Code(s): I48.2 - Chronic atrial fibrillation (4) Dementia Current Visit: Yes Status: Chronic Assessment and plan: supportive care and fall precautions; physical and occupational therapy evaluations noted, recommend placement in extended care facility. Plan of care discussed with patient and his son who is his power of traffic law attorney, at bedside and they are in agreement with placement. program services assistant consulted. 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 transplanted heart: [place] heart Associated angina: without angina Qualified Code(s): I25.810 - Atherosclerosis of coronary artery bypass graft(s) without angina pectoris (8) CKD (chronic kidney disease), stage III Current Visit: Yes Status: Chronic (9) Aortic stenosis, moderate Current Visit: Yes Status: Chronic - Subjective Interval history: Reports no chest pain or dyspnea; does have moist cough. No fever/chills, tolerates diet; - Constitutional Vitals: Temp Pulse Resp BP Pulse Ox 97.9 F 76 16 114/71 96 09/30/16 10:29 09/30/16 10:29 09/30/16 10:29 09/30/16 10:29 09/30/16 10:29 General appearance: Present: A&O X 2. Absent: answers questions appropriately - Respiratory Respiratory exam: Present: CTAB. Absent: accessory muscle use, rales, rhonchi, wheezes - Cardiovascular Cardiovascular exam: Present: irregular rhythm, +S1, +S2. Absent: diastolic murmur, gallop, rubs, systolic murmur - GI/Abdominal GI/Abdominal exam: Present: normal bowel sounds, soft, no peritoneal signs. Absent: distended, tenderness Internal Medicine: Result - Labs CBC & Chem 7: 09/30/16 05:52 09/30/16 05:52 Labs: Short CBC 09/30/16 Range/Units 05:52 WBC 9.3 (4.3-11.1) K/mcL Hgb 10.7 L (12.9-16.9) g/dL Hct 35.2 L (37.5-50.1) % Plt Count 360 (140-400) K/mcL BMP 09/30/16 05:52 Sodium 141 Potassium 3.8 Chloride 106 Carbon Dioxide 25 BUN 31 H Creatinine 1.42 H Glucose 103 H Calcium 9.2 - ABG Interpretation ABG results: PT/INR, D-dimer PT 21.0 Seconds (9.4-12.1) H 09/27/16 21:44 Consult Discharge Plan - Plan Referrals: ColJae ferraro DO [Primary Care Provider] -
[2016-09-30] MEDS: 0.9 % Sodium Chloride 1,000 ML IVC SCH (15:56)
[2016-09-30] MEDS: *HR* Rivaroxaban 15 MG TABLET PO SCH (17:28)
--- NOTE | 2016-09-30 18:15 | Electrocardiograph Report ---
[place] [id number] Test Date: 2016-09-29 Pat Name: Leandro Cruz Department: 113 Room: 3B41 Gender: Barn Hand: BHARATH : 1930 Requested By: Nkechi Sanchez Order Number: [id number] Reading MD: Anaid Shahid Measurements Intervals [place] Rate: 84 P: GA: 0 QRS: 90 QRSD: 143 T: 5 QT: 369 QTc: 410 Interpretive Statements ATRIAL FLUTTER/TACHYCARDIA WITH ABERRANT CONDUCTION OR VENTRICULAR PREMATURE COMPLEXES RIGHT BUNDLE BRANCH BLOCK Electronically Signed On 09-30-2016 18:13:36 EDT by Anaid Shahid
[2016-10-01] MEDS: Aspirin Enteric Coated 81 MG Tablet PO SCH (08:16)
[2016-10-01] MEDS: Cyanocobalamin (B-12) 1,000 MCG/ML VIAL IM SCH (08:17)
[2016-10-01 11:36] VITALS: BP 122/73
--- NOTE | 2016-10-01 15:20 | Discharge Summary ---
Date of Encounter: 10/01/16 Time of Encounter: 14:30 - Discharge Diagnosis (1) CHF (congestive heart failure) Priority: Primary Status: Acute Qualifiers: Congestive heart failure type: diastolic Congestive heart failure chronicity: acute Qualified Code(s): I50.31 - Acute diastolic (congestive) heart failure (2) Acute kidney injury Priority: Primary Status: Acute (3) Atrial fibrillation Priority: Secondary Status: Chronic Qualifiers: Atrial fibrillation type: chronic Qualified Code(s): I48.2 - Chronic atrial fibrillation (4) Dementia Priority: Secondary Status: Chronic Qualifiers: Dementia type: Alzheimer's disease Alzheimer's disease onset: late-onset Dementia behavioral disturbance: without behavioral disturbance Qualified Code (s): G30.1 - Alzheimer's disease with late onset; F02.80 - Dementia in other diseases classified elsewhere without behavioral disturbance (5) Anemia Priority: Secondary Status: Chronic Qualifiers: Anemia type: B12 deficiency 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 transplanted heart: [place] heart Associated angina: without angina Qualified Code(s): I25.810 - Atherosclerosis of coronary artery bypass graft(s) without angina pectoris (8) CKD (chronic kidney disease), stage III Priority: Secondary Status: Chronic (9) Aortic stenosis, moderate Priority: Secondary Status: Chronic - Discharge Medications Prescriptions: Cyanocobalamin (B-12) [Vitamin B12] 1,000 mcg PO QWEEK 30 Days Rivaroxaban [Xarelto] 15 mg PO 1700 #30 tablet Home Medications: Aspirin [Lo-Dose Aspirin EC] 81 mg PO DAILY 09/28/16 [History] Citalopram [CeleXA] 10 mg PO DAILY 09/28/16 [History] Diclofenac Sodium (24 HR) [Voltaren XR] 100 mg PO DAILY 09/28/16 [History] Lisinopril [Zestril] 10 mg PO DAILY 09/28/16 [History] Metoprolol XL (24 HR) Succ [Toprol Xl] 25 mg PO DAILY 09/28/16 [History] Simvastatin [Zocor] 10 mg PO DAILY 09/28/16 [History] Tamsulosin HCl [Flomax] 0.4 mg PO DAILY 09/28/16 [History] Cyanocobalamin (B-12) [Vitamin B12] 1,000 mcg PO QWEEK 30 Days 10/01/16 [Rx] LORazepam [Ativan] 0.5 mg PO HS PRN #20 10/01/16 [Rx] Rivaroxaban [Xarelto] 15 mg PO 1700 #30 tablet 10/01/16 [Rx] Allergies/Adverse Reactions: Allergies No Known Allergies Allergy (Verified 09/28/16 00:07) Procedures/tests Complete & Pending: Procedures Performed prior 72 hours Category Date Time Status ECG 12 lead ECG [ECG] Stat Y 09/29/16 13:53 Completed EKG [ECG 12 lead ECG] [ECG] AM 0600 Y 09/29/16 06:00 Completed Date of admission: 09/28/16 01:32 Primary care physician: Jae Núñez Consults: 09/28/16 08:52 Consult to Cardiology [CONS] Routine Comment: Consulting Provider: Cardiology Kathy Reason for Consult: CHF, slightly elevated trops 0.04, echo pending (pt at echo now) Call Completed: No 09/28/16 11:52 Consult to Occupational Therapy [CONS] Routine Comment: Evaluate, develop and implement POC Reason for Consult: possible pleacement for rehab Consult to Physical Therapy [CONS] Routine Comment: Evaluate, develop and implement POC Reason for Consult: possible placement for rehab Discharging clinician: Marion Leal Anticipated date of discharge: 10/01/16 - Patient Status Disposition: Transfer SNF Condition: Fair Functional capacity at discharge: uses cane/walker Overall status at discharge: patient is progressing back to baseline - Discharge Instructions Instructions: Vitamin B-12 (Cyanocobalamin) (By mouth), Rivaroxaban (By mouth) , Heart Failure (DC), Acute Kidney Injury (DC) Follow Up With: Jae Núñez DO [Primary Care Provider] - Additional Instructions: F/up with Cardiology in 2-3 weeks - Diet and Activity Activity: as per physical therapy Diet: low fat, low cholesterol, low salt diet Hospital course: Mr. Crzu is a 85 year old male with multiple medical problems including dementia, was initially admitted after sustaining a fall while trying to tano away geese at his home. He was noted to be in acute CHF in the emergency room with hypoxia, chest x-ray showing pulmonary edema and elevated BNP. He was started on IV Lasix along with fluid restriction and telemetry monitoring. He had worsening serum creatinine and renal dysfunction due to IV Lasix. He was evaluated by cardiology, his Lasix was held and he received 1 L of gentle IV fluid hydration with improvement in serum creatinine. His pedal edema improved and he was in negative fluid balance. Echocardiogram was done which showed preserved ejection fraction, undetermined diastolic function, moderate aortic stenosis, mild to moderate pulmonary hypertension. He has chronic atrial fibrillation and was restarted on low-dose of Xarelto due to underlying renal dysfunction. Patient's beta jaswinder was initially held due to documented slow ventricular response/bradycardia in the past. This is being restarted at discharge as his heart rate was stable during this hospitalization. Physical therapy evaluation was done and recommended placement in extended care facility. Patient also does live alone at home, which is currently not safe due to his worsening dementia and patient's son, who is his medical power of senior trial attorney, is in agreement with having patient placed in a usp. He is currently medically stable for discharge. - Time Spent with Patient Total time spent providing and/or coordinating discharge services: Greater than 30 minutes (50 min) - Constitutional Vitals: Temp Pulse Resp BP Pulse Ox 97.9 F 63 18 122/73 98 10/01/16 11:35 10/01/16 11:35 10/01/16 11:35 10/01/16 11:35 10/01/16 11:35 General appearance: Present: A&O X 2. Absent: answers questions appropriately - Respiratory Respiratory exam: Present: CTAB. Absent: accessory muscle use, rales, rhonchi, wheezes - Cardiovascular Cardiovascular exam: Present: RRR, +S1, +S2, systolic murmur. Absent: diastolic murmur, gallop, rubs
--- NOTE | 2016-10-01 15:23 | Physician Discharge Referral ---
ExtendedCare Referral Info Provider in Charge: Marion Leal Provider in Charge after Transfer: PCP Institutional Level of Care: Skilled - Diagnosis (1) CHF (congestive heart failure) Priority: Primary Status: Acute (2) Acute kidney injury Priority: Primary Status: Acute (3) Atrial fibrillation Priority: Secondary Status: Chronic (4) Dementia Priority: Secondary Status: Chronic (5) Anemia Priority: Secondary Status: Chronic (6) CVA (cerebral vascular accident) Priority: Secondary Status: Chronic (7) CAD (coronary artery disease) Priority: Secondary Status: Chronic (8) CKD (chronic kidney disease), stage III Priority: Secondary Status: Chronic (9) Aortic stenosis, moderate Priority: Secondary Status: Chronic Expected Duration of Placement: 4 weeks Prognosis: Fair Aware of Diagnosis: Family Aware of Prognosis: Family - Transfer Medications Prescriptions: Cyanocobalamin (B-12) [Vitamin B12] 1,000 mcg PO QWEEK 30 Days Rivaroxaban [Xarelto] 15 mg PO 1700 #30 tablet Home Medications: Aspirin [Lo-Dose Aspirin EC] 81 mg PO DAILY 09/28/16 [History] Citalopram [CeleXA] 10 mg PO DAILY 09/28/16 [History] Diclofenac Sodium (24 HR) [Voltaren XR] 100 mg PO DAILY 09/28/16 [History] LORazepam [Ativan] 0.5 mg PO HS 09/28/16 [History] Lisinopril [Zestril] 10 mg PO DAILY 09/28/16 [History] Metoprolol XL (24 HR) Succ [Toprol Xl] 25 mg PO DAILY 09/28/16 [History] Simvastatin [Zocor] 10 mg PO DAILY 09/28/16 [History] Tamsulosin HCl [Flomax] 0.4 mg PO DAILY 09/28/16 [History] Cyanocobalamin (B-12) [Vitamin B12] 1,000 mcg PO QWEEK 30 Days 10/01/16 [Rx] Rivaroxaban [Xarelto] 15 mg PO 1700 #30 tablet 10/01/16 [Rx] Allergies/Adverse Reactions: Allergies No Known Allergies Allergy (Verified 09/28/16 00:07) - Respiratory Orders Smoking Cessation: Smoking cessation has been advised. For more information, call the [place] Tobacco Quit Line at 9-392-CJDD-NOW. - Ancillary Orders May use pressure relief devices daily prn - Advance Directives Living Will: Yes Power of Truck Manager: Yes (Son) Code Status: DNR-Arrest/Don't Intubate - Mobility Orders Ambulate - Rehabiliation Orders Rehab Potential: Fair Rehab Orders: ROM Exercises, Evaluation for Physical Therapy, Evaluation for Occupational Therapy - Diet Orders Cardiac CERTIFICATION: I certify that the transfer of the above named patient to an Extended Care Facility is necessary for the continuing treatment of the diagnosis listed. The above information is true and accurate reflection of patient's current condition. Confidential - Redisclosure prohibited without a patient's written consent.
== END 2016-10-01 16:26 | DRG 291 ==
LOC: 3BNU 20:22 → EMEROO 20:22 → 3BNU 09-28 00:52 → SUATTDRO 09-28 01:32
PROVIDERS: ADMIT Internal Medicine; ATTEND Internal Medicine

== ENCOUNTER 2017-11-08 09:43 | Inpatient (IN) ==
[2017-11-08 10:21] LABS: Basophils % 0.2 %; Eosinophils # 0.1 K/mcL (0.0-0.6); Eosinophils % 0.5 %; Hematocrit 35.5 % (37.5-50.1); Hemoglobin 11.3 g/dL (12.9-16.9); Immature Granulocytes % 0.5 % (0-4); Lymphocytes # 0.8 K/mcL (0.6-4.6); Lymphocytes % 7.4 %; Mean Corpuscular HGB Conc 31.8 g/dL (31.6-35.5); Mean Corpuscular Hemoglobin 32.5 pg (28.0-33.3); Mean Platelet Volume 9.5 fL (9.4-12.4); Monocytes # 1.2 K/mcL (0.0-1.3); Monocytes % 11.1 %; Neutrophils # 8.5 K/mcL (1.6-8.9); Platelet Count 232 K/mcL (140-400); Red Blood Count 3.48 M/mcL (4.19-5.50); Red Cell Distribution Width 12.5 % (11.5-14.5); Segmented Neutrophils % 80.3 %
[2017-11-08 10:44] LABS: BUN/Creatinine Ratio 26 (6-26); Blood Urea Nitrogen 35 mg/dL (8-23); Calcium 8.7 mg/dL (8.6-10.3); Carbon Dioxide 21 mEq/L (23-29); Chloride 111 mEq/L (98-107); Glucose 161 mg/dL (70-105); Osmolality,Calculated 297 (280-300); Potassium 4.5 mEq/L (3.5-5.1); Sodium 138 mEq/L (136-145); Troponin I 0.03 ng/mL (< 0.04); eGFR For African Americans > 60 (> 60); eGFR For Non-African Americans 51 (> 60)
[2017-11-08] MEDS ORDERED: Piperacillin/Tazobactam 3.375 GM in 0.9 % Sodium Chloride Mini Bag 100 ML IVPB ONE (11:35)
[2017-11-08] MEDS ORDERED: Levofloxacin 750 MG/150 ML 750 MG/150 ML BAG IVPB ONE (11:35)
[2017-11-08] MEDS ORDERED: Furosemide 40 MG/4 ML VIAL IVP ONE (11:36)
[2017-11-08] MEDS ORDERED: 0.9 % Sodium Chloride 500 ML IVC ONE (11:36)
--- NOTE | 2017-11-08 11:41 | Emergency Department Note ---
Disposition Clinical Impression: Pneumonia Qualifiers: Pneumonia type: due to unspecified organism Laterality: left Lung location: unspecified part of lung Qualified Code(s): J18.9 - Pneumonia, unspecified organism Disposition: Admitted As Inpatient Condition: Good Referrals: Jae Núñez DO [Primary Care Provider] - Forms: ED Satisfaction Letter General Adult HPI - General Chief complaint: ED Shortness of Breath/Dyspnea Stated complaint: Shortness of Breath/Loss of Apeptitie Time Seen by Provider: 11/08/17 09:51 Source: EMS Mode of arrival: ambulatory Limitations: no limitations Nursing Notes Reviewed: Yes Vital Signs Reviewed: Yes - History of Present Illness HPI Narrative: Patient presents today from long term by EMS for evaluation of weakness, fatigue, low pulse ox despite home O2. Patient has had decreasing appetite and worsening tachypnea. [facility] concerned about possible pneumonia. The patient is not able to give significant history. The family member at bedside states breathing has been getting worse over the last several months but did not initially see him today until he was told about the patient's condition and coming to the hospital. The long term reports fever of 101.2. Increasing confusion. Worsening congestion and cough. Pain Scale: 0 - Related Data Home Medications Medication Instructions Recorded Confirmed Aspirin [Lo-Dose Aspirin EC] 81 mg PO DAILY 09/28/16 11/08/17 Diclofenac Sodium (24 HR) 100 mg PO DAILY 09/28/16 11/08/17 [Voltaren XR] Lisinopril [Zestril] 10 mg PO DAILY 09/28/16 11/08/17 Simvastatin [Zocor] 10 mg PO DAILY 09/28/16 11/08/17 Tamsulosin HCl [Flomax] 0.4 mg PO DAILY 09/28/16 11/08/17 Citalopram Hydrobromide 5 mg PO DAILY 11/08/17 11/08/17 [Citalopram HBr] Ferrous Sulfate [Iron] 325 mg PO DAILY 11/08/17 11/08/17 Finasteride [Proscar] 5 mg PO DAILY 11/08/17 11/08/17 Tramadol HCl [Ultram] 50 mg PO TID PRN 11/08/17 11/08/17 Previous Rx's Medication Instructions Recorded Cyanocobalamin (B-12) [Vitamin B12] 1,000 mcg PO QWEEK 30 Days tablet 10/01/16 Allergies Allergy/AdvReac Type Severity Reaction Status Date / Time No Known Allergies Allergy Verified 12/19/16 01:54 Review of Systems: As Per HPI Constitutional: Reports: fever Cardiovascular: Denies: chest pain Respiratory: Reports: cough, dyspnea Gastrointestinal: Reports: nausea. Denies: abdominal pain, vomiting, diarrhea Integumentary: Denies: rash Past Medical History - Past Medical History Medical history: Reports: atrial fibrillation, CVA, dementia, hyperlipidemia, hypertension Surgical history: Reports: non-contributory, coronary bypass (CABG) Psychiatric history: Reports: no psych history - Social History Smoking Status: Former smoker Smokeless Tobacco Status: No Alcohol use: Reports: none Drug use: Reports: none Physical Exam General: Patient requiring 3 L nasal cannula. Resting in bed comfortably. Mildly to Head: Normocephalic Atraumatic Eyes: PERRL, EOMI ENT: Airway patent, no stridor Neck: supple, no meningismus Chest: Rales bilaterally Cardiac: Regular rhythm Abdomen: soft, nontender, nondistended; no guarding, rebound, or tenderness to percussion Musculoskeletal: Calves symmetric, nontender, no palpable cord Skin: No rash, normal skin tone Neuro: Alert and alert but not oriented decreased ability to communicate secondary to dementia and dysarthria from previous stroke; No focal deficit, - General General appearance: alert, in no apparent distress Course - Reevaluation(s) Reevaluation #1: Patient with chest x-ray showing some vascular congestion as well as concern for perihilar infiltrate. Patient is a long term resident.. Concern for HCAP. Triple antibiotic coverage given. Patient has received a small dose of fluids secondary to his vascular congestion. We will discuss Lasix with hospitalist. - Consultations Consultation #1: Discussed with hospitalist. Patient accepted for admission. Vital Signs Temperature 98.5 F 11/08/17 09:43 Pulse Rate 88 11/08/17 09:43 Respiratory Rate 24 11/08/17 09:43 Blood Pressure 116/83 11/08/17 09:43 O2 Sat by Pulse Oximetry 98 11/08/17 09:43 Temperature 98.5 F 11/08/17 09:43 Pulse Rate 71 11/08/17 12:17 Respiratory Rate 18 11/08/17 12:17 Blood Pressure 144/51 11/08/17 12:17 O2 Sat by Pulse Oximetry 96 11/08/17 12:17 Oxygen Delivery Oxygen Delivery Nasal Cannula Medical Decision Making - Medical Records Medical records reviewed: Yes I reviewed the patient's medical records. - Lab Data Lab results reviewed: Yes I reviewed the patient's lab results. Result diagrams: 11/08/17 10:12 11/08/17 10:12 Lab Results 11/08/17 11/08/17 11/08/17 Range/Units 10:12 10:12 10:12 WBC 10.6 (4.3-11.1) K/mcL RBC 3.48 L (4.19-5.50) M/mcL Hgb 11.3 L (12.9-16.9) g/dL Hct 35.5 L (37.5-50.1) % MCV 102.0 H (83.0-100.0) fL MCH 32.5 (28.0-33.3) pg MCHC 31.8 (31.6-35.5) g/dL RDW 12.5 (11.5-14.5) % Plt Count 232 (140-400) K/mcL MPV 9.5 (9.4-12.4) fL Immature Gran % 0.5 (0-4) % Seg Neutrophils % 80.3 % Lymphocytes % 7.4 % Monocytes % 11.1 % Eosinophils % 0.5 % Basophils % 0.2 % Neutrophils # 8.5 (1.6-8.9) K/mcL Lymphocytes # 0.8 (0.6-4.6) K/mcL Monocytes # 1.2 (0.0-1.3) K/mcL Eosinophils # 0.1 (0.0-0.6) K/mcL Basophils # 0.0 (0.0-0.2) K/mcL Sodium 138 (136-145) mEq/L Potassium 4.5 (3.5-5.1) mEq/L Chloride 111 H (98-107) mEq/L Carbon Dioxide 21 L (23-29) mEq/L BUN 35 H (8-23) mg/dL Creatinine 1.33 H (0.70-1.30) mg/dL Est GFR ( Amer) > 60 (> 60) Est GFR (Non-Af Amer) 51 L (> 60) BUN/Creatinine Ratio 26 (6-26) Glucose 161 H (70-105) mg/dL Calculated Osmolality 297 (280-300) Lactic Acid 1.4 (0.5-2.2) mmol/L Calcium 8.7 (8.6-10.3) mg/dL Troponin I 0.03 (< 0.04) ng/mL B-Natriuretic Peptide (Less than 100) pg/mL Urine Color (Yellow) Urine Clarity (Clear) Urine pH (5.0-8.0) pH Units Ur Specific [place] (1.010-1.025) Urine Protein (Neg-Trace) mg/dL Urine Glucose (UA) (Normal) mg/dL Urine Ketones (Negative) mg/dL Urine Blood (Negative) Urine Nitrite (Negative) Urine Bilirubin (Negative) Urine Urobilinogen (Normal) mg/dL Ur Leukocyte Esterase (Negative) Urine Microscopic RBC (0-3) per hpf Urine Microscopic WBC (0-3) per hpf Ur Squamous Epith Cells (None-Few) per lpf Urine Bacteria (None-Few) per hpf Hyaline Casts (None-Few) per lpf Ur Culture Indicated? (NO) 11/08/17 11/08/17 Range/Units 10:12 12:03 WBC (4.3-11.1) K/mcL RBC (4.19-5.50) M/mcL Hgb (12.9-16.9) g/dL Hct (37.5-50.1) % MCV (83.0-100.0) fL MCH (28.0-33.3) pg MCHC (31.6-35.5) g/dL RDW (11.5-14.5) % Plt Count (140-400) K/mcL MPV (9.4-12.4) fL Immature Gran % (0-4) % Seg Neutrophils % % Lymphocytes % % Monocytes % % Eosinophils % % Basophils % % Neutrophils # (1.6-8.9) K/mcL Lymphocytes # (0.6-4.6) K/mcL Monocytes # (0.0-1.3) K/mcL Eosinophils # (0.0-0.6) K/mcL Basophils # (0.0-0.2) K/mcL Sodium (136-145) mEq/L Potassium (3.5-5.1) mEq/L Chloride (98-107) mEq/L Carbon Dioxide (23-29) mEq/L BUN (8-23) mg/dL Creatinine (0.70-1.30) mg/dL Est GFR ( Amer) (> 60) Est GFR (Non-Af Amer) (> 60) BUN/Creatinine Ratio (6-26) Glucose (70-105) mg/dL Calculated Osmolality (280-300) Lactic Acid (0.5-2.2) mmol/L Calcium (8.6-10.3) mg/dL Troponin I (< 0.04) ng/mL B-Natriuretic Peptide 112 H (Less than 100) pg/mL Urine Color Yellow (Yellow) Urine Clarity Cloudy A (Clear) Urine pH 8.0 (5.0-8.0) pH Units Ur Specific [place] 1.018 (1.010-1.025) Urine Protein 30 H (Neg-Trace) mg/dL Urine Glucose (UA) Normal (Normal) mg/dL Urine Ketones Negative (Negative) mg/dL Urine Blood Negative (Negative) Urine Nitrite Positive A (Negative) Urine Bilirubin Negative (Negative) Urine Urobilinogen Normal (Normal) mg/dL Ur Leukocyte Esterase Large H (Negative) Urine Microscopic RBC 0-3 (0-3) per hpf Urine Microscopic WBC 50-100 H (0-3) per hpf Ur Squamous Epith Cells Few (None-Few) per lpf Urine Bacteria Many H (None-Few) per hpf Hyaline Casts Few (None-Few) per lpf Ur Culture Indicated? YES A (NO) - Radiology Data Radiology results reviewed: Yes I reviewed the patient's radiology results. - EKG Data EKG #1 EKG attestation: Yes I reviewed and interpreted this EKG. EKG results narrative: EKG shows ventricular rate of 70. QRS 165. QTC 399. Right bundle branch block. No change from previous EKG. P waves are not discernible.
[2017-11-08] MEDS ORDERED: 0.9 % Sodium Chloride 1,000 ML IVC SCH (11:45)
[2017-11-08 12:15] LABS: Bilirubin,Urine Negative (Negative); Blood,Urine Negative (Negative); Clarity,Urine Cloudy (Clear); Color,Urine Yellow (Yellow); Glucose,Urine (UA) Normal (Normal); Ketones,Urine Negative (Negative); Leukocyte Esterase,Urine Large (Negative); Nitrite,Urine Positive (Negative); Protein,Urine 30 mg/dL (Neg-Trace); Specific Gravity,Urine 1.018 (1.010-1.025); Urobilinogen,Urine Normal (Normal)
[2017-11-08 12:17] LABS: Bacteria,Urine Many per hpf (None-Few); Hyaline Casts,Urine Few per lpf (None-Few); RBC,Urine 0-3 per hpf (0-3); Squamous Epithelial Cell,Urine Few per lpf (None-Few); WBC,Urine 50-100 per hpf (0-3)
[2017-11-08] MEDS ORDERED: Acetaminophen 325 MG TABLET PO PRN (13:03)
[2017-11-08] MEDS ORDERED: Naloxone 0.4 MG/ML INJ IVP PRN (13:03)
[2017-11-08] MEDS ORDERED: traMADol 50 MG TABLET PO PRN (13:06)
--- NOTE | 2017-11-08 14:18 | Internal Med History&Physical ---
<Uday Celis - Last Filed: 11/08/17 15:07> Date of Encounter: 11/08/17 Time of Encounter: 13:00 Internal Medicine - H&P: HPI Chief complaint: SOB/Dyspnea Admitted From: Emergency Dept Plans for Post Hospital Care: Home History of present illness: Mr. 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 Pt. appears altered so information taken from son (POA) who is present. Son reports that SNF reported fever of 101.2F, increasing confusion, worsening chest congestion and cough, and increasing SOB. Son reports that SNF stated that pts. breathing had become worse over the past few months. Pts. son denies nausea, vomiting, changes in vision, CP/cardiac sx, diarrhea, constipation, pre-syncope, or syncope. Past Med Surg Social Fam HX - Past Medical History Source: old records reviewed, obtained from family Medical history: atrial fibrillation, CVA (May 2014 w/o residual deficits/ weakness), dementia, hyperlipidemia, hypertension Additional medical history: Anemia Psychiatric history: no psych history - Past Surgical History Surgical History: non-contributory, coronary bypass (CABG) (Quadruple) - Social History Smoking Status: Former smoker Packs per day: Pipe - Son reports pt. quit 30 years ago Smokeless Tobacco Status: No Alcohol use: none Drug use: none Current living situation: ECF Activity Level: Uses cane/walker Recent Out of Country Travel Within the Last 8 Weeks: No Exposure or Possible Exposure to Illness During Travel: No - Family History Father Race: Family Member Ethnicity: Non- Living Status: Age at : 73 Cause of : AR Hx Family Cardiac Disorders: Yes (AR, CAD) Mother Race: Family Member Ethnicity: Non- Living Status: Age at : 88 Cause of : Alzheimer's disease Hx Family Neurologic Disorders: Yes (Alzheimer's disease) Brother History Unknown: Yes Race: Family Member Ethnicity: Non- Living Status: Still Living Sister Race: Family Member Ethnicity: Non- Living Status: Still Living Hx Family Neurologic Disorders: Yes (Alzheimer's disease) Internal Medicine - H&P: Meds Aspirin [Lo-Dose Aspirin EC] 81 mg PO DAILY 09/28/16 [History] Diclofenac Sodium (24 HR) [Voltaren XR] 100 mg PO DAILY 09/28/16 [History] Lisinopril [Zestril] 10 mg PO DAILY 09/28/16 [History] Simvastatin [Zocor] 10 mg PO DAILY 09/28/16 [History] Tamsulosin HCl [Flomax] 0.4 mg PO DAILY 09/28/16 [History] Cyanocobalamin (B-12) [Vitamin B12] 1,000 mcg PO QWEEK 30 Days tablet 10/01/16 [Rx] Citalopram Hydrobromide [Citalopram HBr] 5 mg PO DAILY 11/08/17 [History] Ferrous Sulfate [Iron] 325 mg PO DAILY 11/08/17 [History] Finasteride [Proscar] 5 mg PO DAILY 11/08/17 [History] Tramadol HCl [Ultram] 50 mg PO TID PRN 11/08/17 [History] 3 Allergy/AdvReac Type Severity Reaction Status Date / Time No Known Allergies Allergy Verified 12/19/16 01:54 All Systems PM: A 10-system review of systems was performed and is negative for pertinent findings except as documented above in the HPI. - Constitutional Constitutional: as per HPI, fatigue, fever(s), weakness, no chills, no night sweats - EENT Eyes: no change in vision, no discharge, no pain, no photophobia Ears: no ear discharge, no ear pain, no tinnitus Nose, mouth and throat: no dysphagia, no nasal discharge, no neck pain, no sore throat - Breasts Breasts: as per HPI - Cardiovascular Cardiovascular ROS IM: as per HPI, dyspnea, dyspnea on exertion, edema ( Bilateral pedal edema), irregular heart rhythm (Atrial fibrillation), no chest pain, no diaphoresis, no lightheadedness, no palpitations, no syncope - Respiratory Respiratory: as per HPI, cough, dyspnea, dyspnea on exertion, wheezing, chest congestion, no excessive phlegm production - Gastrointestinal Gastrointestinal: no abdominal pain, no diarrhea, no hematemesis, no hematochezia, no melena, no nausea, no vomiting - Genitourinary Genitourinary ROS male: as per HPI - Musculoskeletal Musculoskeletal ROS IM: no numbness, no tingling - Integumentary Integumentary IM: no rash, no unusual bruising - Neurological Neurological ROS: no confusion, no convulsions, no focal weakness, no numbness, no tingling, no tremor(s) - Psychiatric Psychiatric: as per HPI - Endocrine Endocrine IM: as per HPI - Hematologic/Lymphatic Hematologic/Lymphatic: no easy bruising - Allergic/Immunologic Allergic/Immunologic: as per HPI - Constitutional Vitals: Temp Pulse Resp BP Pulse Ox 98.5 F 71 18 144/51 96 11/08/17 09:43 11/08/17 12:17 11/08/17 12:17 11/08/17 12:17 11/08/17 12:17 General appearance: Present: cooperative, A&O X 1, mild distress (Respiratory), pleasant, obese, answers questions appropriately - Head Head exam: Present: atraumatic, normocephalic - Eye Eye exam: Present: PERRL, conjuntiva pink, sclera anicteric Pupils: Present: PERRL - ENT ENT exam: Present: normal exam - Neck Neck exam general surgery: Present: normal inspection, supple, trachea midline. Absent: lymphadenopathy - Respiratory Respiratory exam: Present: accessory muscle use, respiratory distress, wheezes. Absent: rales, rhonchi - Cardiovascular Cardiovascular exam: Present: irregular rhythm (Atrial fibrillation), tachycardia - GI/Abdominal GI/Abdominal exam: Present: normal bowel sounds, soft, no peritoneal signs. Absent: distended, tenderness - Rectal Rectal exam: Present: deferred - Additional comments: exam deferred. - Extremities Exam Extremities exam: Present: pedal edema, warm, radial pulses palpable and symmetrical. Absent: calf tenderness, cyanotic - Back Exam Back exam: Present: normal inspection - Neurological Exam Neurological exam: Present: altered, CN II-XII intact, no focal deficits. Absent: pronater drift, facial droop, speech deficit - Psychiatric Psychiatric exam: Present: anxious - Skin Skin exam: Present: dry, intact Internal Med - H&P Results - Labs CBC & Chem 7: 11/08/17 10:12 11/08/17 10:12 - EKG Data Prior EKG available for review: yes EKG comments: 11/08/17 14:31 EKG dated 12/21/16 shows atrial flutter/tachycardia with aberrant conduction or ventricular premature complexes, marked right axis deviation, RBBB. EKG dated 11/08/17 shows atrial flutter/tachycardia with RBBB. - Diagnostic Studies Chest x-ray Additional comments: Impressions Chest X-Ray 11/08/17 09:51 IMPRESSION: Mild pulmonary vascular congestion with small left pleural effusion. There is patchy left perihilar airspace opacity which could reflect pneumonia in the appropriate clinical setting. Recommend a short-term follow-up to ensure resolution. D/ / Tangela Yanez MD / Tangela Yanez MD Interpreting Provider: Tangela Yanez MD - Assessment and plan (1) HCAP (healthcare-associated pneumonia) Current Visit: Yes Status: Acute Assessment and plan: Acute HCAP. Patient is resident of [facility]. Reported shortness of breath and dyspnea for the past several months which has become progressively worse recently. CXR today shows mild pulmonary vascular congestion with small left pleural effusion. There is patchy left perihilar airspace opacity which could reflect pneumonia in the proper clinical setting. Blood cultures x2. Respiratory infection panel and legionella/strep pneumoniae antigens ordered. Supplemental O2 w/titration and SpO2 monitoring. Continuous cardiac telemetry. Xopenex IH. Mucinex for cough. IVPB Levaquin 750 mg every 48 for renal dosing, vancomycin with pharmacy dosing, and Zosyn 3.375 gm every 8 hour for infection coverage Will adjust abx coverage based on culture/panel results. Pt. received 1L bolus followed by 125 mL/HR 0.9 NS in ED. Will d/c d/t pts. CHF. Will use IV fluids judiciously d/t pts. renal dysfunction and CHF if pt. begins to show signs of sepsis. Currently does not meet sepsis criteria w/ WBC of 10.6, lactic acid of 1.4, 98.4F temp, HR of 71, and RR of 18. Will monitor closely for SIRS criteria and/or signs of increasing infection. Pt. discussed w/Dr. Shahid who agrees w/plan of care. Pt. is high risk for further infection/sepsis and further morbidity based on current symptoms, SOB/ dyspnea, cough/congestion, residence in SNF, history, and risk factors. Inpatient. (2) SOB (shortness of breath) Current Visit: Yes Status: Acute Assessment and plan: Acute SOB/dyspnea. Pt. uses O2 @ SNF. Mucinex PRN for cough. Supplemental O2 w/ titration and SpO2 monitoring. Xopenex IH d/t atrial fibrillation. Respiratory infection panel ordered. Legionella and strep pneumoniae antigens ordered. (3) Cough Current Visit: Yes Status: Acute Assessment and plan: Acute cough. Mucinex PRN. Supplemental O2 w/titration and SpO2 monitoring. Xopenex IH d/t atrial fibrillation. Respiratory infection panel ordered. Legionella and strep pneumoniae antigens ordered. (4) Weakness Current Visit: Yes Status: Acute Assessment and plan: Acute on chronic weakness. Falls/safety precautions and up with assist only. PT/ OT consults ordered d/t son's report of ambulation instability. (5) HLD (hyperlipidemia) Current Visit: Yes Status: Chronic Assessment and plan: Hx of chronic HLD. Lipid panel in a.m. labs. Continue pts. Zocor. Qualifiers: Hyperlipidemia type: pure hypercholesterolemia Qualified Code(s): E78.00 - Pure hypercholesterolemia, unspecified; E78.0 - Pure hypercholesterolemia (6) HTN (hypertension) Current Visit: Yes Status: Chronic Assessment and plan: Hx of chronic HTN. Monitor pt. and VS. Continue pts. lisinopril. Qualifiers: Hypertension type: essential hypertension Qualified Code(s): I10 - Essential (primary) hypertension (7) Anemia Current Visit: Yes Status: Chronic Assessment and plan: Hx of chronic anemia. Hgb 11.3 and Hct 35.5 today, down from 12.0 and 37.9 on 11/03. Pts. son denies any knowledge of unusual bleeding. Monitor pt. and f/u labs. Qualifiers: Anemia type: unspecified type Qualified Code(s): D64.9 - Anemia, unspecified (8) Atrial fibrillation Current Visit: Yes Status: Chronic Assessment and plan: Hx of chronic atrial fibrillation not on anticoagulation. Pt. takes low-dose aspirin daily. Heparin 5,000 units SQ Q8HR for DVT prophylaxis. EKG shows atrial flutter/tachycardia with RBBB. Monitor pt. and HR. Will add Cardizem IVP if warranted. Qualifiers: Atrial fibrillation type: chronic Qualified Code(s): I48.2 - Chronic atrial fibrillation (9) CAD (coronary artery disease) Current Visit: Yes Status: Chronic Assessment and plan: Hx of chronic CAD. Hx of quadruple bypass. Continuous cardiac telemetry. Continue pts. Aspirin therapy, lisinopril, and Zocor. Qualifiers: Coronary Disease-Associated Artery/Lesion type: [place] artery [place] vs. transplanted heart: [place] heart Associated angina: without angina Qualified Code(s): I25.10 - Atherosclerotic heart disease of [place] coronary artery without angina pectoris (10) Dementia Current Visit: Yes Status: Chronic Assessment and plan: Hx of chronic dementia. Falls/safety precautions and up with assist only. Will order sitter if pt. begins to show signs of agitation. Qualifiers: Dementia type: Alzheimer's disease Alzheimer's disease onset: late-onset Dementia behavioral disturbance: without behavioral disturbance Qualified Code (s): G30.1 - Alzheimer's disease with late onset; F02.80 - Dementia in other diseases classified elsewhere without behavioral disturbance (11) CKD (chronic kidney disease) stage 3, GFR 30-59 ml/min Current Visit: Yes Status: Chronic Assessment and plan: Hx of CKD. Currently stage 3 w/GFR of 51 and creatinine of 1.33. Will use IV fluids judiciously due to current renal dysfunction and CHF history. Avoid nephrotoxins. Monitor I&O and daily weight. 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 Continuous cardiac telemetry. Monitor pt. for signs of neurologic decline/changes. (13) DVT prophylaxis Current Visit: Yes Status: Acute Assessment and plan: Heparin 5,000 units SQ Q8HR for DVT prophylaxis. Monitor pt. for signs of bleeding. (14) CHF (congestive heart failure) Current Visit: Yes Status: Chronic Assessment and plan: Hx of CHF. BNP mildly elevated @ 112. Mild pedal edema on exam. Pt received 1L 0.9 NS IV bolus followed by 125 mL/HR in ED. Will d/c d/t pts. CHF. Will use IV fluids judiciously if warranted and pt. begins to show signs of sepsis. Will add IVP lasix if pt. begins to show signs of fluid overload. Continuous cardiac telemetry. Qualifiers: Heart failure type: diastolic Heart failure chronicity: chronic Qualified Code(s): I50.32 - Chronic diastolic (congestive) heart failure - Time Spent With Patient Total time spent is greater than 50% in coordination of care (as documented) at patient's floor/unit and/or counseling patient: Greater than 35 minutes <Alejandra Shahid - Last Filed: 11/09/17 09:27> Date of Encounter: 11/09/17 Internal Medicine - H&P: HPI History of present illness: Mr. Cruz is a 87 year old male All Systems PM: A 10-system review of systems was performed and is negative for pertinent findings except as documented above in the HPI. - Constitutional Vitals: Temp Pulse Resp BP Pulse Ox 98.3 F 85 18 129/69 99 11/09/17 07:45 11/09/17 07:45 11/09/17 07:45 11/09/17 07:45 11/09/17 07:45 Internal Med - H&P Results - Labs CBC & Chem 7: 11/09/17 05:19 11/09/17 05:19 Labs: Short CBC 11/09/17 Range/Units 05:19 WBC 9.9 (4.3-11.1) K/mcL Hgb 10.9 L (12.9-16.9) g/dL Hct 34.9 L (37.5-50.1) % Plt Count 240 (140-400) K/mcL Neutrophils # 7.2 (1.6-8.9) K/mcL BMP 11/09/17 05:19 Sodium 140 Potassium 4.3 Chloride 109 H Carbon Dioxide 25 BUN 32 H Creatinine 1.41 H Glucose 109 H Calcium 8.8 Cardiac Enzymes 11/08/17 11/08/17 Range/Units 16:28 22:40 Troponin I 0.04 H* 0.04 H* (< 0.04) ng/mL Liver Function 11/09/17 Range/Units 05:19 Total Bilirubin 0.4 (0.3-1.0) mg/dL AST 11 L (13-39) Units/L ALT 11 (7-52) Units/L Alkaline Phosphatase 64 (34-104) Units/L Albumin 3.2 L (3.5-5.7) g/dL - Attending Attestation Seen and assessed. Continue management for Sepsis/ HCAP. Agree with plan per STRUCTURES MECHANIC - Assessment and plan (1) CAD (coronary artery disease) Current Visit: Yes Status: Chronic Qualifiers: Coronary Disease-Associated Artery/Lesion type: [place] artery [place] vs. transplanted heart: [place] heart Associated angina: without angina Qualified Code(s): I25.10 - Atherosclerotic heart disease of [place] coronary artery without angina pectoris (2) Atrial fibrillation Current Visit: Yes Status: Chronic Qualifiers: Atrial fibrillation type: chronic Qualified Code(s): I48.2 - Chronic atrial fibrillation (3) Dementia Current Visit: Yes Status: Chronic Qualifiers: Dementia type: Alzheimer's disease Alzheimer's disease onset: late-onset Dementia behavioral disturbance: without behavioral disturbance Qualified Code (s): G30.1 - Alzheimer's disease with late onset; F02.80 - Dementia in other diseases classified elsewhere without behavioral disturbance (4) Anemia Current Visit: Yes Status: Chronic Qualifiers: Anemia type: unspecified type Qualified Code(s): D64.9 - Anemia, unspecified (5) DVT prophylaxis Current Visit: Yes Status: Acute (6) SOB (shortness of breath) Current Visit: Yes Status: Acute (7) Cough Current Visit: Yes Status: Acute (8) Hx TIA/stroke w/o resid Current Visit: Yes Status: Resolved (9) HLD (hyperlipidemia) Current Visit: Yes Status: Chronic Qualifiers: Hyperlipidemia type: pure hypercholesterolemia Qualified Code(s): E78.00 - Pure hypercholesterolemia, unspecified; E78.0 - Pure hypercholesterolemia (10) HTN (hypertension) Current Visit: Yes Status: Chronic Qualifiers: Hypertension type: essential hypertension Qualified Code(s): I10 - Essential (primary) hypertension (11) HCAP (healthcare-associated pneumonia) Current Visit: Yes Status: Acute (12) Weakness Current Visit: Yes Status: Acute (13) CKD (chronic kidney disease) stage 3, GFR 30-59 ml/min Current Visit: Yes Status: Chronic (14) CHF (congestive heart failure) Current Visit: Yes Status: Chronic Qualifiers: Heart failure type: diastolic Heart failure chronicity: chronic Qualified Code(s): I50.32 - Chronic diastolic (congestive) heart failure - Time Spent With Patient Total time spent is greater than 50% in coordination of care (as documented) at patient's floor/unit and/or counseling patient:
[2017-11-08] MEDS ORDERED: *HR* Heparin 5,000 UNIT/ML VIAL ONE (14:34)
[2017-11-08] MEDS: *HR* Heparin 5,000 UNIT/ML VIAL SQ SCH ×2 (14:54→21:09)
[2017-11-08] MEDS ORDERED: Levalbuterol Neb 1.25 MG/3 ML IH SCH (16:00)
[2017-11-08] MEDS: Piperacillin/Tazobactam 3.375 GM in 0.9 % Sodium Chloride Mini Bag 100 ML IVPB SCH ×2 (16:33→23:47)
[2017-11-08] MEDS ORDERED: Cyanocobalamin (B-12) 1,000 MCG TABLET PO SCH (17:00)
[2017-11-08] MEDS ORDERED: Nitroglycerin 0.4 MG TAB.SUBL SL PRN (17:13)
[2017-11-08 20:00] LABS: Adenovirus Not Detected (Not Detect); Bordetella Pertussis Not Detected (Not Detect); Chlamydophila pneumoniae Not Detected (Not Detect); Coronavirus 229E Not Detected (Not Detect); Coronavirus HKU1 Not Detected (Not Detect); Coronavirus NL63 Not Detected (Not Detect); Coronavirus OC43 Not Detected (Not Detect); Human Metapneumovirus Not Detected (Not Detect); Human Rhinovirus/Enterovirus Not Detected (Not Detect); Influenza A Subtype 2009 H1 Not Detected (Not Detect); Influenza A Untypeable Not Detected (Not Detect); Influenza B Not Detected (Not Detect); Parainfluenza Virus 1 Not Detected (Not Detect); Parainfluenza Virus 2 Not Detected (Not Detect); Parainfluenza Virus 3 Not Detected (Not Detect); Parainfluenza Virus 4 Not Detected (Not Detect); Respiratory Syncytial Virus Not Detected (Not Detect)
[2017-11-08 20:01] LABS: Mycoplasma pneumoniae Not Detected (Not Detect)
[2017-11-08] MEDS: Artificial Tears SOLN 15 ML BOTTLE BOTH EYES SCH (22:43)
[2017-11-09] MEDS: *HR* Heparin 5,000 UNIT/ML VIAL SQ SCH ×3 (05:11→21:30)
[2017-11-09 05:48] LABS: Basophils % 0.3 %; Eosinophils # 0.1 K/mcL (0.0-0.6); Eosinophils % 1.4 %; Hematocrit 34.9 % (37.5-50.1); Hemoglobin 10.9 g/dL (12.9-16.9); Immature Granulocytes % 0.5 % (0-4); Lymphocytes # 1.2 K/mcL (0.6-4.6); Lymphocytes % 12.4 %; Mean Corpuscular HGB Conc 31.2 g/dL (31.6-35.5); Mean Corpuscular Hemoglobin 31.3 pg (28.0-33.3); Mean Corpuscular Volume 100.3 fL (83.0-100.0); Mean Platelet Volume 9.4 fL (9.4-12.4); Monocytes # 1.3 K/mcL (0.0-1.3); Monocytes % 12.8 %; Neutrophils # 7.2 K/mcL (1.6-8.9); Platelet Count 240 K/mcL (140-400); Red Blood Count 3.48 M/mcL (4.19-5.50); Red Cell Distribution Width 12.6 % (11.5-14.5); Segmented Neutrophils % 72.6 %
[2017-11-09 06:06] LABS: Albumin 3.2 g/dL (3.5-5.7); Albumin/Globulin Ratio 0.9 (1.1-2.2); Bilirubin,Total 0.4 mg/dL (0.3-1.0); Calcium 8.8 mg/dL (8.6-10.3); Chol/HDL Ratio 2.3 (0-4.9); Globulin 3.5 g/dL (2.4-3.5); Potassium 4.3 mEq/L (3.5-5.1); Total Protein 6.7 g/dL (6.4-8.9)
[2017-11-09] MEDS ORDERED: Aminoglycoside Consult 1 EACH MC ONE (07:51)
[2017-11-09] MEDS ORDERED: traMADol 50 MG TABLET PO PRN (08:00)
[2017-11-09 08:13] LABS: Estimated Average Glucose 123 mg/dl; Hemoglobin A1C 5.9 %
[2017-11-09] MEDS ORDERED: Diclofenac Sodium (24 HR) 100 MG TABLET PO SCH (09:00)
[2017-11-09] MEDS: Finasteride 5 MG TABLET PO SCH (09:04)
[2017-11-09] MEDS: Piperacillin/Tazobactam 3.375 GM in 0.9 % Sodium Chloride Mini Bag 100 ML IVPB SCH ×2 (09:05→17:45)
[2017-11-09] MEDS: Artificial Tears SOLN 15 ML BOTTLE BOTH EYES SCH ×4 (09:05→21:31)
[2017-11-09] MEDS: Aspirin Enteric Coated 81 MG Tablet PO SCH (09:05)
--- NOTE | 2017-11-09 19:02 | Electrocardiograph Report ---
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
--- NOTE | 2017-11-09 19:03 | Electrocardiograph Report ---
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
--- NOTE | 2017-11-09 19:29 | Internal Med Progress Note ---
Date of Encounter: 11/09/17 Time of Encounter: 19:28 - Assessment and plan (1) HCAP (healthcare-associated pneumonia) Current Visit: Yes Status: Acute Assessment and plan: Patient is resident of [facility] assisted. IVPB Levaquin 750 mg every 48 for renal dosing, vancomycin with pharmacy dosing , and Zosyn 3.375 gm every 8 hour for infection coverage. Will adjust abx coverage based on culture/panel results. (2) Dyspnea Current Visit: Yes Status: Acute Assessment and plan: Acute SOB/dyspnea. Pt. uses O2 @ SNF. Will continue with O2 supplement. Qualifiers: Qualified Code(s): R06.00 - Dyspnea, unspecified (3) Dementia Current Visit: Yes Status: Chronic Qualifiers: Dementia type: Alzheimer's disease Alzheimer's disease onset: late-onset Dementia behavioral disturbance: without behavioral disturbance Qualified Code (s): G30.1 - Alzheimer's disease with late onset; F02.80 - Dementia in other diseases classified elsewhere without behavioral disturbance (4) Anemia Current Visit: Yes Status: Chronic Assessment and plan: Hx of chronic anemia. Hgb 11.3 and Hct 35.5 today, down from 12.0 and 37.9 on 11/03. family denied any knowledge of unusual bleeding. If drops will check FOBT. Monitor pt. and f/u labs. Qualifiers: Anemia type: unspecified type Qualified Code(s): D64.9 - Anemia, unspecified (5) Cough Current Visit: Yes Status: Acute Assessment and plan: Mucinex (6) HLD (hyperlipidemia) Current Visit: Yes Status: Chronic Assessment and plan: Hx of chronic HLD. Lipid panel in a.m. labs. Continue pts. Zocor. Qualifiers: Hyperlipidemia type: pure hypercholesterolemia Qualified Code(s): E78.00 - Pure hypercholesterolemia, unspecified; E78.0 - Pure hypercholesterolemia (7) HTN (hypertension) Current Visit: Yes Status: Chronic Assessment and plan: Hx of chronic HTN. Monitor pt. and VS. Continue pts. lisinopril. Qualifiers: Hypertension type: essential hypertension Qualified Code(s): I10 - Essential (primary) hypertension (8) Weakness Current Visit: Yes Status: Acute Assessment and plan: Falls/safety precautions and up with assist only. PT/OT consults ordered d/t son 's report of ambulation instability. - Time Spent With Patient Total time spent is greater than 50% in coordination of care (as documented) at patient's floor/unit and/or counseling patient: less than 15 minutes - Subjective Interval history: Pt denies chest pain but still some SOB. Poor overall historian due to underlying dementia but denies fever, chills, N/V or diarrhea. - Constitutional Vitals: Temp Pulse Resp BP Pulse Ox 97.9 F 68 20 112/72 96 11/09/17 19:11 11/09/17 19:11 11/09/17 19:11 11/09/17 19:11 11/09/17 19:11 General appearance: Present: cooperative, A&O X 1, mild distress (Respiratory), pleasant, obese, answers questions appropriately - Head Head exam: Present: atraumatic, normocephalic - Eye Eye exam: Present: PERRL, conjuntiva pink, sclera anicteric Pupils: Present: PERRL - Neck Neck exam general surgery: Present: supple, trachea midline. Absent: lymphadenopathy - Respiratory Respiratory exam: Present: rhonchi. Absent: accessory muscle use, rales, wheezes - Cardiovascular Cardiovascular exam: Present: RRR, +S1, +S2. Absent: diastolic murmur, gallop, rubs, systolic murmur - GI/Abdominal GI/Abdominal exam: Present: normal bowel sounds, soft, no peritoneal signs. Absent: distended, tenderness - Extremities Exam Extremities exam: Present: warm, radial pulses palpable and symmetrical. Absent : calf tenderness, cyanotic, pedal edema - Neurological Exam Neurological exam: Present: CN II-XII intact, oriented X3, no focal deficits. Absent: pronater drift, facial droop, speech deficit - Skin Skin exam: Present: dry, intact Internal Medicine: Result - Labs CBC & Chem 7: 11/09/17 05:19 11/09/17 05:19 Labs: Short CBC 11/09/17 Range/Units 05:19 WBC 9.9 (4.3-11.1) K/mcL Hgb 10.9 L (12.9-16.9) g/dL Hct 34.9 L (37.5-50.1) % Plt Count 240 (140-400) K/mcL Neutrophils # 7.2 (1.6-8.9) K/mcL BMP 11/09/17 05:19 Sodium 140 Potassium 4.3 Chloride 109 H Carbon Dioxide 25 BUN 32 H Creatinine 1.41 H Glucose 109 H Calcium 8.8 Cardiac Enzymes 11/08/17 Range/Units 22:40 Troponin I 0.04 H* (< 0.04) ng/mL Liver Function 11/09/17 Range/Units 05:19 Total Bilirubin 0.4 (0.3-1.0) mg/dL AST 11 L (13-39) Units/L ALT 11 (7-52) Units/L Alkaline Phosphatase 64 (34-104) Units/L Albumin 3.2 L (3.5-5.7) g/dL Consult Discharge Plan - Plan Referrals: ColopyJae DO [Primary Care Provider] -
[2017-11-10] MEDS: Piperacillin/Tazobactam 3.375 GM in 0.9 % Sodium Chloride Mini Bag 100 ML IVPB SCH ×3 (00:55→16:22)
[2017-11-10 04:23] LABS: Basophils % 0.3 %; Eosinophils # 0.3 K/mcL (0.0-0.6); Eosinophils % 2.6 %; Hematocrit 33.8 % (37.5-50.1); Hemoglobin 10.8 g/dL (12.9-16.9); Immature Granulocytes % 0.5 % (0-4); Lymphocytes # 1.2 K/mcL (0.6-4.6); Lymphocytes % 11.5 %; Mean Corpuscular Hemoglobin 32.7 pg (28.0-33.3); Mean Corpuscular Volume 102.4 fL (83.0-100.0); Mean Platelet Volume 9.7 fL (9.4-12.4); Monocytes # 1.1 K/mcL (0.0-1.3); Monocytes % 10.6 %; Neutrophils # 7.6 K/mcL (1.6-8.9); Platelet Count 252 K/mcL (140-400); Red Cell Distribution Width 12.4 % (11.5-14.5); Segmented Neutrophils % 74.5 %
[2017-11-10 05:07] LABS: Albumin 3.3 g/dL (3.5-5.7); Albumin/Globulin Ratio 0.9 (1.1-2.2); Bilirubin,Total 0.4 mg/dL (0.3-1.0); Globulin 3.8 g/dL (2.4-3.5); Potassium 4.3 mEq/L (3.5-5.1); Total Protein 7.1 g/dL (6.4-8.9)
[2017-11-10] MEDS: *HR* Heparin 5,000 UNIT/ML VIAL SQ SCH ×3 (06:07→21:10)
[2017-11-10] MEDS: Aspirin Enteric Coated 81 MG Tablet PO SCH (08:02)
[2017-11-10] MEDS: Artificial Tears SOLN 15 ML BOTTLE BOTH EYES SCH ×4 (08:02→21:00)
[2017-11-10] MEDS: Finasteride 5 MG TABLET PO SCH (08:02)
--- NOTE | 2017-11-10 12:59 | Internal Med Progress Note ---
Date of Encounter: 11/10/17 Time of Encounter: 09:50 - Assessment and plan (1) HCAP (healthcare-associated pneumonia) Current Visit: Yes Status: Acute Assessment and plan: Pneumonia-likely healthcare associated. On broad-spectrum antibiotics currently. Cultures are negative. We will de-escalate antibiotics. Moderate risk for complications. (2) CAD (coronary artery disease) Current Visit: Yes Status: Chronic Assessment and plan: Continue aspirin, statin. No chest pain Qualifiers: Coronary Disease-Associated Artery/Lesion type: [place] artery [place] vs. transplanted heart: [place] heart Associated angina: without angina Qualified Code(s): I25.10 - Atherosclerotic heart disease of [place] coronary artery without angina pectoris (3) Atrial fibrillation Current Visit: Yes Status: Chronic Assessment and plan: Not on anticoagulation given underlying comorbidities. Rate controlled Qualifiers: Atrial fibrillation type: chronic Qualified Code(s): I48.2 - Chronic atrial fibrillation (4) Dementia Current Visit: Yes Status: Chronic Assessment and plan: No signs of delirium at this time. Follow-up outpatient with PCP Qualifiers: Dementia type: Alzheimer's disease Alzheimer's disease onset: late-onset Dementia behavioral disturbance: without behavioral disturbance Qualified Code (s): G30.1 - Alzheimer's disease with late onset; F02.80 - Dementia in other diseases classified elsewhere without behavioral disturbance (5) Anemia Current Visit: Yes Status: Chronic Assessment and plan: Hemoglobin levels are stable. Qualifiers: Anemia type: unspecified type Qualified Code(s): D64.9 - Anemia, unspecified (6) SOB (shortness of breath) Current Visit: Yes Status: Acute (7) Hx TIA/stroke w/o resid Current Visit: Yes Status: Resolved Assessment and plan: Continue aspirin, statin (8) HLD (hyperlipidemia) Current Visit: Yes Status: Chronic Assessment and plan: On statin Qualifiers: Hyperlipidemia type: pure hypercholesterolemia Qualified Code(s): E78.00 - Pure hypercholesterolemia, unspecified; E78.0 - Pure hypercholesterolemia (9) HTN (hypertension) Current Visit: Yes Status: Chronic Assessment and plan: Well-controlled Qualifiers: Hypertension type: essential hypertension Qualified Code(s): I10 - Essential (primary) hypertension (10) Weakness Current Visit: Yes Status: Chronic Assessment and plan: Patient stays at rehabilitation facility. Will most likely be discharged back to skilled rehabilitation. (11) CKD (chronic kidney disease) stage 3, GFR 30-59 ml/min Current Visit: Yes Status: Chronic (12) CHF (congestive heart failure) Current Visit: Yes Status: Chronic Assessment and plan: Continue home medications. No signs of acute heart failure. Qualifiers: Heart failure type: diastolic Heart failure chronicity: chronic Qualified Code(s): I50.32 - Chronic diastolic (congestive) heart failure (13) DVT prophylaxis Current Visit: Yes Status: Acute Assessment and plan: On subcutaneous heparin (14) Acute cystitis Current Visit: Yes Status: Acute Assessment and plan: With Proteus mirabilis that is pansensitive. Continue Levaquin. Qualifiers: Hematuria presence: without hematuria Qualified Code(s): N30.00 - Acute cystitis without hematuria (15) CKD (chronic kidney disease), stage III Current Visit: Yes Status: Chronic Assessment and plan: Creatinine slightly elevated compared to yesterday. Will place patient on gentle IV hydration. - Time Spent With Patient Total time spent is greater than 50% in coordination of care (as documented) at patient's floor/unit and/or counseling patient: - Subjective Interval history: Patient is currently lying in bed. Not following commands but answers some questions appropriately. Appears disheveled. No fevers or chills reported overnight. Currently on 3 L nasal cannula. - Constitutional Vitals: Temp Pulse Resp BP Pulse Ox 98.5 F 77 20 106/71 98 11/10/17 11:46 11/10/17 11:46 11/10/17 11:46 11/10/17 11:46 11/10/17 11:46 General appearance: Present: disheveled, mild distress (Respiratory), obese. Absent: answers questions appropriately - Neck Neck exam general surgery: Present: supple, trachea midline. Absent: lymphadenopathy - Respiratory Respiratory exam: Present: CTAB. Absent: accessory muscle use, rales, rhonchi, wheezes - Cardiovascular Cardiovascular exam: Present: RRR, +S1, +S2. Absent: diastolic murmur, gallop, rubs, systolic murmur - GI/Abdominal GI/Abdominal exam: Present: normal bowel sounds, soft, no peritoneal signs. Absent: distended, tenderness - Extremities Exam Extremities exam: Present: warm, radial pulses palpable and symmetrical. Absent : calf tenderness, cyanotic, pedal edema - Neurological Exam Neurological exam: Present: alert, no focal deficits. Absent: facial droop, speech deficit Internal Medicine: Result - Labs CBC & Chem 7: 11/10/17 03:42 11/10/17 03:42 Labs: Short CBC 11/10/17 Range/Units 03:42 WBC 10.2 (4.3-11.1) K/mcL Hgb 10.8 L (12.9-16.9) g/dL Hct 33.8 L (37.5-50.1) % Plt Count 252 (140-400) K/mcL Neutrophils # 7.6 (1.6-8.9) K/mcL BMP 11/10/17 03:42 Sodium 139 Potassium 4.3 Chloride 107 Carbon Dioxide 22 L BUN 33 H Creatinine 1.44 H Glucose 93 Calcium 9.0 Liver Function 11/10/17 Range/Units 03:42 Total Bilirubin 0.4 (0.3-1.0) mg/dL AST 18 (13-39) Units/L ALT 15 (7-52) Units/L Alkaline Phosphatase 69 (34-104) Units/L Albumin 3.3 L (3.5-5.7) g/dL Consult Discharge Plan - Plan Referrals: Jae Núñez DO [Primary Care Provider] -
[2017-11-10] MEDS ORDERED: Ringers Solution, Lactated 1,000 ML IVC SCH (13:15)
[2017-11-10] MEDS ORDERED: Levofloxacin 750 MG/150 ML 750 MG/150 ML BAG IVPB SCH (14:00)
[2017-11-10] MEDS ORDERED: levoFLOXacin 750 MG TABLET PO SCH (14:00)
[2017-11-10] MEDS ORDERED: Ringers Solution, Lactated 500 ML IVC SCH (15:30)
[2017-11-11 04:47] LABS: Basophils % 0.4 %; Eosinophils # 0.2 K/mcL (0.0-0.6); Eosinophils % 2.2 %; Hematocrit 36.1 % (37.5-50.1); Hemoglobin 11.4 g/dL (12.9-16.9); Immature Granulocytes % 0.9 % (0-4); Immature Platelets 1.7 % (1.1-6.1); Lymphocytes # 1.3 K/mcL (0.6-4.6); Lymphocytes % 13.7 %; Mean Corpuscular HGB Conc 31.6 g/dL (31.6-35.5); Mean Corpuscular Hemoglobin 31.6 pg (28.0-33.3); Mean Platelet Volume 9.7 fL (9.4-12.4); Monocytes # 1.1 K/mcL (0.0-1.3); Monocytes % 11.5 %; Neutrophils # 6.8 K/mcL (1.6-8.9); Platelet Count 274 K/mcL (140-400); Red Blood Count 3.61 M/mcL (4.19-5.50); Segmented Neutrophils % 71.3 %
[2017-11-11 05:02] LABS: Platelet Estimate Normal (Normal)
[2017-11-11 05:03] LABS: Alanine Aminotransferase 17 Units/L (7-52); Albumin 3.1 g/dL (3.5-5.7); Alkaline Phosphatase 69 Units/L (34-104); Aspartate Amino Transferase 19 Units/L (13-39); BUN/Creatinine Ratio 22 (6-26); Bilirubin,Total 0.4 mg/dL (0.3-1.0); Blood Urea Nitrogen 30 mg/dL (8-23); Carbon Dioxide 26 mEq/L (23-29); Chloride 107 mEq/L (98-107); Globulin 3.2 g/dL (2.4-3.5); Glucose 122 mg/dL (70-105); Osmolality,Calculated 299 (280-300); Potassium 4.4 mEq/L (3.5-5.1); Sodium 141 mEq/L (136-145); Total Protein 6.3 g/dL (6.4-8.9); eGFR For African Americans > 60 (> 60); eGFR For Non-African Americans 50 (> 60)
[2017-11-11] MEDS: *HR* Heparin 5,000 UNIT/ML VIAL SQ SCH ×2 (06:00→14:14)
--- NOTE | 2017-11-11 08:17 | Electrocardiograph Report ---
[address] [place] [address] Test Date: 2017-11-08 Pat Name: Leandro Cruz Department: 103 Room: 2A13 Gender: M Pullman Clerk: : [id number] Requested By: Antolin Brown Order Number: [id number] Reading MD: Orlando Hazel Measurements Intervals [place] Rate: 70 P: [place]: 0 QRS: 82 QRSD: 165 T: 60 QT: 378 QTc: 399 Interpretive Statements ATRIAL FLUTTER/TACHYCARDIA RIGHT BUNDLE BRANCH BLOCK Electronically Signed On 11-11-2017 8:15:24 EDT by Orlando Hazel
[2017-11-11] MEDS: Aspirin Enteric Coated 81 MG Tablet PO SCH (08:34)
[2017-11-11] MEDS: Finasteride 5 MG TABLET PO SCH (08:34)
[2017-11-11] MEDS: Artificial Tears SOLN 15 ML BOTTLE BOTH EYES SCH ×2 (08:35→12:01)
--- NOTE | 2017-11-11 14:51 | Discharge Summary ---
- NOTES TO OUTPATIENT PROVIDER Notes to Outpatient Provider: Patient hospitalized from alf for healthcare associated pneumonia. Treated with broad-spectrum antibiotics. Blood blood cultures have been negative but patient does have positive urine culture with Proteus mirabilis. This is sensitive to Levaquin. Patient will be discharged back to skilled rehabilitation later today on oral antibiotics to complete treatment for both pneumonia and his UTI. Date of Encounter: 11/11/17 Time of Encounter: 14:48 - Discharge Diagnosis (1) HCAP (healthcare-associated pneumonia) Priority: Primary Status: Acute (2) CAD (coronary artery disease) Priority: Secondary Status: Chronic Qualifiers: Coronary Disease-Associated Artery/Lesion type: [place] artery [place] vs. transplanted heart: [place] heart Associated angina: without angina Qualified Code(s): I25.10 - Atherosclerotic heart disease of [place] coronary artery without angina pectoris (3) Atrial fibrillation Priority: Secondary Status: Chronic Qualifiers: Atrial fibrillation type: chronic Qualified Code(s): I48.2 - Chronic atrial fibrillation (4) Dementia Priority: Secondary Status: Chronic Qualifiers: Dementia type: Alzheimer's disease Alzheimer's disease onset: late-onset Dementia behavioral disturbance: without behavioral disturbance Qualified Code (s): G30.1 - Alzheimer's disease with late onset; F02.80 - Dementia in other diseases classified elsewhere without behavioral disturbance (5) Anemia Priority: Secondary Status: Chronic Qualifiers: Anemia type: unspecified type Qualified Code(s): D64.9 - Anemia, unspecified (6) SOB (shortness of breath) Priority: Secondary Status: Acute (7) Hx TIA/stroke w/o resid Priority: Secondary Status: Resolved (8) HLD (hyperlipidemia) Priority: Secondary Status: Chronic Qualifiers: Hyperlipidemia type: pure hypercholesterolemia Qualified Code(s): E78.00 - Pure hypercholesterolemia, unspecified; E78.0 - Pure hypercholesterolemia (9) HTN (hypertension) Priority: Secondary Status: Chronic Qualifiers: Hypertension type: essential hypertension Qualified Code(s): I10 - Essential (primary) hypertension (10) Weakness Priority: Secondary Status: Chronic (11) CKD (chronic kidney disease) stage 3, GFR 30-59 ml/min Priority: Secondary Status: Chronic (12) CHF (congestive heart failure) Priority: Secondary Status: Chronic Qualifiers: Heart failure type: diastolic Heart failure chronicity: chronic Qualified Code(s): I50.32 - Chronic diastolic (congestive) heart failure (13) DVT prophylaxis Priority: Secondary Status: Acute (14) Acute cystitis Priority: Secondary Status: Acute Qualifiers: Hematuria presence: without hematuria Qualified Code(s): N30.00 - Acute cystitis without hematuria (15) CKD (chronic kidney disease), stage III Priority: Secondary Status: Chronic Hospital course: Mr. Cruz is a 87 year old male Patient with history of atrial fibrillation, CVA, hypertension and hyperlipidemia who was hospitalized from alf for healthcare associated pneumonia. He had fever on presentation. He was Treated with broad-spectrum antibiotics. Blood cultures have been negative but patient does have positive urine culture with Proteus mirabilis. This is sensitive to Levaquin. Patient will be discharged back to skilled rehabilitation later today on oral antibiotics to complete treatment for both pneumonia and his UTI. In addition patient is also been wheezing and will be discharged on bronchodilator nebs to be used as needed. Discharge discussed with: patient, nurse, case management - Time Spent with Patient Total time spent providing and/or coordinating discharge services: Greater than 30 minutes (32 min) - Discharge Medications Prescriptions: Albuterol Neb [AccuNeb] 1.25 mg IH Q4HR #30 inhsol Acetaminophen [Tylenol 8 Hour] 650 mg PO Q6H PRN #30 tablet.er PRN Reason: Pain/ Fever levoFLOXacin [Levaquin] 750 mg PO Q48H #4 tablet Home Medications: Aspirin [Lo-Dose Aspirin EC] 81 mg PO DAILY 09/28/16 [History] Lisinopril [Zestril] 10 mg PO DAILY 09/28/16 [History] Simvastatin [Zocor] 10 mg PO DAILY 09/28/16 [History] Tamsulosin HCl [Flomax] 0.4 mg PO DAILY 09/28/16 [History] Cyanocobalamin (B-12) [Vitamin B12] 1,000 mcg PO QWEEK 30 Days tablet 10/01/16 [Rx] Citalopram Hydrobromide [Citalopram HBr] 5 mg PO DAILY 11/08/17 [History] Ferrous Sulfate [Iron] 325 mg PO DAILY 11/08/17 [History] Finasteride [Proscar] 5 mg PO DAILY 11/08/17 [History] Acetaminophen [Tylenol 8 Hour] 650 mg PO Q6H PRN #30 tablet.er 11/11/17 [Rx] Albuterol Neb [AccuNeb] 1.25 mg IH Q4HR #30 inhsol 11/11/17 [Rx] levoFLOXacin [Levaquin] 750 mg PO Q48H #4 tablet 11/11/17 [Rx] Allergies/Adverse Reactions: 3 Allergy/AdvReac Type Severity Reaction Status Date / Time No Known Allergies Allergy Verified 12/19/16 01:54 Date of admission: 11/08/17 13:21 Primary care physician: Jae Núñez Discharging clinician: Antolin Brown Anticipated date of discharge: 11/11/17 - Constitutional Vitals: Temp Pulse Resp BP Pulse Ox 98.2 F 80 18 120/70 96 11/11/17 11:17 11/11/17 11:17 11/11/17 11:17 11/11/17 11:17 11/11/17 11:17 General appearance: Present: cooperative, disheveled, obese Exam: Patient is disoriented. Answers some questions appropriately - Neck Neck exam general surgery: Present: supple, trachea midline. Absent: lymphadenopathy - Respiratory Respiratory exam: Present: prolonged expiratory phase, wheezes. Absent: accessory muscle use, rales, rhonchi - Cardiovascular Cardiovascular exam: Present: RRR, +S1, +S2. Absent: diastolic murmur, gallop, rubs, systolic murmur - GI/Abdominal GI/Abdominal exam: Present: normal bowel sounds, soft, no peritoneal signs. Absent: distended, tenderness - Extremities Exam Extremities exam: Present: warm, radial pulses palpable and symmetrical. Absent : calf tenderness, cyanotic, pedal edema - Patient Status Disposition: Transfer SNF Condition: Good Functional capacity at discharge: bed bound Overall status at discharge: patient is progressing back to baseline - Discharge Instructions Instructions: Pneumonia (DC) Follow Up With: Jae Núñez DO [Primary Care Provider] - (please have patient call once they are discharge and home. per request of office) - Diet and Activity Activity: as per physical therapy Diet: low salt diet
--- NOTE | 2017-11-11 15:01 | Physician Discharge Referral ---
ExtendedCare Referral Info Provider in Charge after Transfer: PCP Institutional Level of Care: Skilled - Diagnosis (1) HCAP (healthcare-associated pneumonia) Priority: Primary Status: Acute (2) CAD (coronary artery disease) Priority: Secondary Status: Chronic (3) Atrial fibrillation Priority: Secondary Status: Chronic (4) Dementia Priority: Secondary Status: Chronic (5) Anemia Priority: Secondary Status: Chronic (6) SOB (shortness of breath) Priority: Secondary Status: Acute (7) Hx TIA/stroke w/o resid Priority: Secondary Status: Resolved (8) HLD (hyperlipidemia) Priority: Secondary Status: Chronic (9) HTN (hypertension) Priority: Secondary Status: Chronic (10) Weakness Status: Chronic (11) CKD (chronic kidney disease) stage 3, GFR 30-59 ml/min Priority: Secondary Status: Chronic (12) CHF (congestive heart failure) Priority: Secondary Status: Chronic (13) DVT prophylaxis Priority: Secondary Status: Acute (14) Acute cystitis Priority: Secondary Status: Acute (15) CKD (chronic kidney disease), stage III Priority: Secondary Status: Chronic Prognosis: Fair Aware of Diagnosis: Family - Transfer Medications Prescriptions: Albuterol Neb [AccuNeb] 1.25 mg IH Q4HR #30 inhsol Acetaminophen [Tylenol 8 Hour] 650 mg PO Q6H PRN #30 tablet.er PRN Reason: Pain/ Fever levoFLOXacin [Levaquin] 750 mg PO Q48H #4 tablet Home Medications: Aspirin [Lo-Dose Aspirin EC] 81 mg PO DAILY 09/28/16 [History] Lisinopril [Zestril] 10 mg PO DAILY 09/28/16 [History] Simvastatin [Zocor] 10 mg PO DAILY 09/28/16 [History] Tamsulosin HCl [Flomax] 0.4 mg PO DAILY 09/28/16 [History] Cyanocobalamin (B-12) [Vitamin B12] 1,000 mcg PO QWEEK 30 Days tablet 10/01/16 [Rx] Citalopram Hydrobromide [Citalopram HBr] 5 mg PO DAILY 11/08/17 [History] Ferrous Sulfate [Iron] 325 mg PO DAILY 11/08/17 [History] Finasteride [Proscar] 5 mg PO DAILY 11/08/17 [History] Acetaminophen [Tylenol 8 Hour] 650 mg PO Q6H PRN #30 tablet.er 07/11/18 [Rx] Albuterol Neb [AccuNeb] 1.25 mg IH Q4HR #30 inhsol 11/11/17 [Rx] levoFLOXacin [Levaquin] 750 mg PO Q48H #4 tablet 11/11/17 [Rx] Allergies/Adverse Reactions: 3 Allergy/AdvReac Type Severity Reaction Status Date / Time No Known Allergies Allergy Verified 12/19/16 01:54 - Respiratory Orders Oxygen / L per min (2) Smoking Cessation: Smoking cessation has been advised. For more information, call the [employer] Quit Line at 9-100-XQSX-NOW. - Advance Directives Code Status: DNR-Arrest/Don't Intubate - Mobility Orders Other (per PT) - Rehabiliation Orders Rehab Potential: Fair Rehab Orders: Evaluation for Physical Therapy, Evaluation for Occupational Therapy - Diet Orders Cardiac CERTIFICATION: I certify that the transfer of the above named patient to an Extended Care Facility is necessary for the continuing treatment of the diagnosis listed. The above information is true and accurate reflection of patient's current condition. Confidential - Redisclosure prohibited without a patient's written consent.
[2017-11-11 16:06] VITALS: BP 119/72
== END 2017-11-11 16:57 | DRG 194 ==
LOC: EMEROO 09:43 → 2ANU 09:43 → SUATTDRO 13:21 → 2ANU 13:54
PROVIDERS: ADMIT Student in an Organized Health Care Education/Training Program; ATTEND Internal Medicine

== ENCOUNTER 2019-05-20 13:16 | Inpatient (IN) ==
[2019-05-20 14:06] LABS: Hematocrit 39.6 % (37.5-50.1); Hemoglobin 12.8 g/dL (12.9-16.9); Mean Corpuscular HGB Conc 32.3 g/dL (31.6-35.5); Mean Corpuscular Hemoglobin 32.9 pg (28.0-33.3); Mean Corpuscular Volume 101.8 fL (83.0-100.0); Mean Platelet Volume 9.6 fL (9.4-12.4); Platelet Count 243 K/mcL (140-400); Red Blood Count 3.89 M/mcL (4.19-5.50); Red Cell Distribution Width 13.2 % (11.5-14.5); White Blood Count 7.8 K/mcL (4.3-11.1)
[2019-05-20 14:17] LABS: Prothrombin Time 11.8 Seconds (9.4-12.1)
[2019-05-20 14:20] LABS: Activated Partial Thrombo Time 27.3 Seconds (26.0-36.0)
[2019-05-20 14:43] LABS: Alanine Aminotransferase 13 Units/L (7-52); Albumin 3.6 g/dL (3.5-5.7); Albumin/Globulin Ratio 1.1 (1.1-2.2); Alkaline Phosphatase 77 Units/L (34-104); Aspartate Amino Transferase 12 Units/L (13-39); BUN/Creatinine Ratio 22 (6-26); Bilirubin,Total 0.3 mg/dL (0.3-1.0); Blood Urea Nitrogen 28 mg/dL (8-23); Calcium 8.4 mg/dL (8.6-10.3); Carbon Dioxide 26 mEq/L (23-29); Chloride 107 mEq/L (98-107); Globulin 3.3 g/dL (2.4-3.5); Glucose 114 mg/dL (70-105); Osmolality,Calculated 296 (280-300); Potassium 4.8 mEq/L (3.5-5.1); Sodium 140 mEq/L (136-145); Total Protein 6.9 g/dL (6.4-8.9); eGFR For African Americans > 60 (> 60); eGFR For Non-African Americans 54 (> 60)
[2019-05-20 15:01] LABS: Bilirubin,Urine Negative (Negative); Blood,Urine Small (Negative); Clarity,Urine Clear (Clear); Color,Urine Yellow (Yellow); Glucose,Urine (UA) Normal (Normal); Ketones,Urine Negative (Negative); Leukocyte Esterase,Urine Moderate (Negative); Nitrite,Urine Positive (Negative); PH,Urine 5.5 pH Units (5.0-8.0); Protein,Urine Negative (Neg-Trace); Specific Gravity,Urine 1.018 (1.010-1.025); Urobilinogen,Urine Normal (Normal)
[2019-05-20 15:06] LABS: Bacteria,Urine Many per hpf (None-Few); Hyaline Casts,Urine None Seen per lpf (None-Few); Squamous Epithelial Cell,Urine Many per lpf (None-Few)
[2019-05-20] MEDS ORDERED: Piperacillin/Tazobactam 3.375 GM in 0.9 % Sodium Chloride Mini Bag 100 ML IVPB ONE (15:41)
[2019-05-20] MEDS ORDERED: levoFLOXacin 500 MG/100 ML 500 MG/100 ML BAG IVPB ONE (16:00)
[2019-05-20] MEDS ORDERED: Ondansetron 4 MG/2 ML VIAL IVP PRN (16:17)
[2019-05-20] MEDS ORDERED: Naloxone 0.4 MG/ML INJ IVP PRN (16:17)
[2019-05-20] MEDS ORDERED: Acetaminophen 325 MG TABLET PO PRN (16:17)
[2019-05-20] MEDS ORDERED: Ipratropium/Albuterol Neb 3 ML IH PRN (19:04)
[2019-05-20] MEDS: Metoprolol XL (24 HR) Succ 50 MG TAB.ER.24H PO SCH (19:54)
[2019-05-20] MEDS: Finasteride 5 MG TABLET PO SCH (19:54)
[2019-05-20] MEDS: *HR* Heparin 5,000 UNIT/ML VIAL SQ SCH (21:21)
[2019-05-21 03:56] LABS: Basophils % 0.3 %; Eosinophils # 0.3 K/mcL (0.0-0.6); Eosinophils % 2.6 %; Hematocrit 35.7 % (37.5-50.1); Immature Granulocytes % 0.2 % (0-4); Lymphocytes # 1.2 K/mcL (0.6-4.6); Lymphocytes % 12.2 %; Mean Corpuscular HGB Conc 30.3 g/dL (31.6-35.5); Mean Corpuscular Hemoglobin 32.3 pg (28.0-33.3); Mean Corpuscular Volume 106.9 fL (83.0-100.0); Mean Platelet Volume 10.1 fL (9.4-12.4); Monocytes # 1.1 K/mcL (0.0-1.3); Monocytes % 10.7 %; Neutrophils # 7.3 K/mcL (1.6-8.9); Platelet Count 229 K/mcL (140-400); Red Blood Count 3.34 M/mcL (4.19-5.50); Red Cell Distribution Width 13.3 % (11.5-14.5); White Blood Count 9.8 K/mcL (4.3-11.1)
[2019-05-21 03:57] LABS: Hemoglobin 10.8 g/dL (12.9-16.9)
[2019-05-21 04:15] LABS: BUN/Creatinine Ratio 20 (6-26); Blood Urea Nitrogen 26 mg/dL (8-23); Calcium 8.3 mg/dL (8.6-10.3); Carbon Dioxide 26 mEq/L (23-29); Chloride 108 mEq/L (98-107); Glucose 106 mg/dL (70-105); Osmolality,Calculated 301 (280-300); Potassium 4.6 mEq/L (3.5-5.1); Sodium 143 mEq/L (136-145); eGFR For African Americans > 60 (> 60); eGFR For Non-African Americans 53 (> 60)
[2019-05-21] MEDS: *HR* Heparin 5,000 UNIT/ML VIAL SQ SCH ×3 (05:09→20:38)
[2019-05-21] MEDS: Aspirin Enteric Coated 81 MG Tablet PO SCH (09:23)
[2019-05-21] MEDS: cefTRIAXone 1,000 MG in Water for inj. (sterile) 10 ML IVP SCH (09:24)
[2019-05-21] MEDS: Metoprolol XL (24 HR) Succ 50 MG TAB.ER.24H PO SCH (09:24)
[2019-05-21] MEDS: Finasteride 5 MG TABLET PO SCH (20:38)
[2019-05-22] MEDS: *HR* Heparin 5,000 UNIT/ML VIAL SQ SCH ×3 (06:33→21:42)
[2019-05-22 06:47] LABS: Calcium 8.6 mg/dL (8.6-10.3); Magnesium 2.1 mg/dL (1.6-2.6); Potassium 4.4 mEq/L (3.5-5.1)
[2019-05-22] MEDS: cefTRIAXone 1,000 MG in Water for inj. (sterile) 10 ML IVP SCH (09:59)
[2019-05-22] MEDS: Aspirin Enteric Coated 81 MG Tablet PO SCH (10:00)
[2019-05-22] MEDS: Metoprolol XL (24 HR) Succ 50 MG TAB.ER.24H PO SCH (10:00)
[2019-05-22] MEDS: Finasteride 5 MG TABLET PO SCH (21:43)
[2019-05-23] MEDS: *HR* Heparin 5,000 UNIT/ML VIAL SQ SCH (05:50)
[2019-05-23 06:57] LABS: Basophils % 0.4 %; Eosinophils # 0.3 K/mcL (0.0-0.6); Eosinophils % 4.5 %; Hemoglobin 11.7 g/dL (12.9-16.9); Immature Granulocytes % 0.4 % (0-4); Lymphocytes # 1.3 K/mcL (0.6-4.6); Lymphocytes % 19.3 %; Mean Corpuscular HGB Conc 30.8 g/dL (31.6-35.5); Mean Corpuscular Hemoglobin 32.5 pg (28.0-33.3); Mean Corpuscular Volume 105.6 fL (83.0-100.0); Monocytes # 0.7 K/mcL (0.0-1.3); Neutrophils # 4.5 K/mcL (1.6-8.9); Platelet Count 221 K/mcL (140-400); Red Cell Distribution Width 12.7 % (11.5-14.5); Segmented Neutrophils % 65.4 %; White Blood Count 6.9 K/mcL (4.3-11.1)
[2019-05-23] MEDS: cefTRIAXone 1,000 MG in Water for inj. (sterile) 10 ML IVP SCH (08:32)
[2019-05-23] MEDS: Aspirin Enteric Coated 81 MG Tablet PO SCH (08:32)
[2019-05-23] MEDS: Metoprolol XL (24 HR) Succ 50 MG TAB.ER.24H PO SCH (08:32)
[2019-05-23 10:56] VITALS: BP 112/60
[2019-05-23 11:06] LABS: BUN/Creatinine Ratio 26 (6-26); Blood Urea Nitrogen 34 mg/dL (8-23); Calcium 8.5 mg/dL (8.6-10.3); Carbon Dioxide 27 mEq/L (23-29); Chloride 106 mEq/L (98-107); Glucose 145 mg/dL (70-105); Osmolality,Calculated 304 (280-300); Potassium 4.2 mEq/L (3.5-5.1); Sodium 142 mEq/L (136-145); eGFR For African Americans > 60 (> 60); eGFR For Non-African Americans 52 (> 60)
[2019-05-24] MEDS ORDERED: Metoprolol XL (24 HR) Succ 25 MG TAB.ER.24H PO SCH (09:00)
[2019-05-25] MEDS ORDERED: Cyanocobalamin (B-12) 1,000 MCG TABLET PO SCH (19:03)
== END 2019-05-23 13:32 | DRG 689 ==
LOC: EMEROOARM 13:16 → 3ANU 13:16 → SUATTDRO 16:23 → 3ANU 17:50
PROVIDERS: ADMIT Pharmacist; ATTEND Pharmacist